=== PATIENT | female | born 1990 | race Caucasian/White ===

== ENCOUNTER 2016-10-03 10:00 | Observation (INO) | payer BC ==
[2016-09-26 14:31] VITALS: BMI 25.0
--- NOTE | 2016-09-26 14:58 | PAT Medication Instructions ---
Service Date September 26, 2016. Current Home Medication List Acetaminophen Tab (Tylenol), 325-650 MG PO PRN Bupropion (Wellbutrin), 100 MG PO TID Levonorgestrel-Ethinyl Estradi (Seasonique), 1 TAB PO HS Lorazepam (Ativan), 0.5 MG PO TID PRN for PRN Mirtazapine Soltab (Remeron Soltab), 30 MG PO HS Multivitamin (Multivitamin), 1 TAB PO QAM Omeprazole (Prilosec), 40 MG PO QAM Polyethylene Glycol 3350 (Miralax), 17 GM PO PRN Sumatriptan Succinate (Imitrex), 100 MG PO PRN [Nystatin Powder], 1 DOSE TOP PRN Medication Instructions For Your Scheduled Surgery - Check with surgeon for instructions: Levonorgestrel-Ethinyl Estradi (Seasonique), 1 TAB PO HS - Hold the following medications 24 hours prior to surgery: [Nystatin Powder], 1 DOSE TOP PRN - Hold the following medications the morning of surgery: Polyethylene Glycol 3350 (Miralax), 17 GM PO PRN Multivitamin (Multivitamin), 1 TAB PO QAM - Take the following medications the morning of surgery with a sip of water: Sumatriptan Succinate (Imitrex), 100 MG PO PRN (if needed) Omeprazole (Prilosec), 40 MG PO QAM Lorazepam (Ativan), 0.5 MG PO TID PRN for PRN (if needed) Bupropion (Wellbutrin), 100 MG PO TID Acetaminophen Tab (Tylenol), 325-650 MG PO PRN (if needed) - Take the following medications as scheduled the night before surgery: Sumatriptan Succinate (Imitrex), 100 MG PO PRN Polyethylene Glycol 3350 (Miralax), 17 GM PO PRN Mirtazapine Soltab (Remeron Soltab), 30 MG PO HS Lorazepam (Ativan), 0.5 MG PO TID PRN for PRN Bupropion (Wellbutrin), 100 MG PO TID Acetaminophen Tab (Tylenol), 325-650 MG PO PRN If you have any questions please call us at [phone] or [phone] or [phone]
[2016-09-26 15:39] LABS: HEMATOCRIT 37.7 % (37-47); MEAN CELL VOLUME 90.8 fL (80-100); MEAN CORPUSCULAR HEMOGLOBIN 30.4 pg (25-34); MEAN CORPUSCULAR HGB CONC 33.4 g/dl (32-36); MEAN PLATELET VOLUME 10.2 fL (7.4-10.4); PLATELET COUNT 272 K/uL (130-400); RED BLOOD COUNT 4.15 M/uL (4.2-5.4); WHITE BLOOD COUNT 5.35 K/uL (4.8-10.8)
[2016-09-26 15:51] LABS: PROTHROMBIN TIME (PATIENT) 10.7 SECONDS (9.0-12.0)
[2016-09-26 16:03] LABS: BASO % 1.3 %; BASO ABS # 0.07 K/uL (0-0.2); COMPLETE YES; EOS % 5.4 %; IG% 0.2 %; LYMPH % 53.8 %; LYMPH ABS # 2.88 K/uL (1.2-3.4); MONO % 5.6 %; NEUT % 33.7 %
[2016-09-26 16:25] LABS: BUN/CREATININE RATIO 13.6 (10-20); CALCIUM 8.7 mg/dl (8.5-10.1); CREATININE 1.1 mg/dl (0.60-1.20); POTASSIUM 3.7 mmol/L (3.5-5.1)
[~2016-10-03] VITALS: Ht 157.5 cm; Wt 61.7 kg
[2016-10-03] VITALS (7 sets, daily range): BP systolic 95–128; BP diastolic 56–87; PULSE 55–79; TEMP 36.4–37; O2SAT 95–100; Ht 157.5 cm; Wt 61.7 kg
[~2016-10-03 10:00] MED LIST: ACET325T96 PO; ATROPINE SULFATE 0.1 MG/ML 5ML SYR IV PRN; BUPR-83 PO; CEFAZOLIN 2000 MG/60 ML D5W IV SCH; ENOXAPARIN 30 MG/0.3 ML SYR SQ SCH; EpHEDrine SULFATE INJ 50 MG/ML AMP IV PRN; FENTANYL CITRATE INJ 50 MCG/1 ML 2 ML VIAL IV PRN; HYDROmorphone INJ 1 MG/ML SYR IV PRN; LACTATED RINGER'S 1000ML 1,000 ML IV SCH; LEVOTAB6 PO; LORA-741 PO; MIRT30TA2 PO; MULT-506 PO; NYSTATIN POWDER TOP; OMEP40CA41 PO; ONDANSETRON INJ 2 MG/ML 2 ML VIAL IV PRN; POLY335019 PO; SUMA100T16 PO
--- NOTE | 2016-10-03 11:00 | History & Physical Bridge Note ---
H&P Re-Evaluation Bridge Note: I have examined the patient, reviewed the History & Physical and in the interval since the performance of the History & Physical I have noted the following changes of clinical significance: No changes noted
[2016-10-03] MEDS ORDERED: HYDROmorphone INJ 2 MG/ML SYR/VIAL ONE ×2 (11:16→14:22)
[2016-10-03] MEDS ORDERED: LIDOCAINE HCL 2% 2 ML VIAL (20MG/ML) ONE (11:16)
[2016-10-03] MEDS ORDERED: FENTANYL CITRATE INJ 50 MCG/1 ML 2 ML VIAL ONE ×2 (11:16→14:22)
[2016-10-03] MEDS ORDERED: MIDAZOLAM HCL 1 MG/ML 2ML VIAL ONE (11:16)
[2016-10-03] MEDS ORDERED: PROPOFOL IV EMULSION 10 MG/ML 20 ML VIAL IV ONE (11:16)
[2016-10-03] MEDS ORDERED: ONDANSETRON INJ 2 MG/ML 2 ML VIAL ONE ×2 (11:16→11:49)
[2016-10-03] MEDS ORDERED: DEXAMETHASONE SOD INJ 4 MG/ML VIAL ONE (11:16)
[2016-10-03] MEDS ORDERED: GLYCOPYRROLATE INJ 0.2 MG/ML VIAL ONE (11:16)
[2016-10-03] MEDS ORDERED: ROCURONIUM BROMIDE 10 MG/ML 5 ML VIAL ONE (11:16)
[2016-10-03] MEDS ORDERED: NEOSTIGMINE METHYLSULFATE 5 MG/5 ML SYR ONE (11:16)
[2016-10-03] MEDS ORDERED: BUPIVACAINE 0.5 % 5 MG/1 ML MPF 30ML VIAL ONE (11:22)
[2016-10-03] MEDS ORDERED: LIDOCAINE/EPINEPHRINE 1% 20 ML VIAL ONE (11:22)
--- NOTE | 2016-10-03 13:59 | [facility] Post Operative Brief Note ---
Immediate Operative Summary Operative Date October 03, 2016. Pre-Operative Diagnosis Abdominal Pannus Post-Operative Diagnosis same as preop Procedure(s) Performed Panniculectomy Surgeon Dr. Melisa Man Tumbler Machine Operator Surgeon(s) Aline Toledo PA-C Estimated Blood Loss 20 Findings excess skin lower abdomen Specimens Permanent Specimens A: Excessive abdominal skin= 860 grams Drains JOHNATHAN x2 Anesthesia general Complication(s) None Disposition Recovery Room / PACU
[2016-10-03] MEDS ORDERED: ONDANSETRON INJ 2 MG/ML 2 ML VIAL IV PRN (14:15)
[2016-10-03] MEDS ORDERED: OXAZEPAM 10MG CAP PO PRN (14:15)
[2016-10-03] MEDS ORDERED: SUMATRIPTAN SUCC TAB 100 MG TAB PO PRN (14:15)
[2016-10-03] MEDS ORDERED: OXYCODONE/ACETAMINOPHEN 5-325 TAB PO PRN (14:15)
[2016-10-03] MEDS ORDERED: PROMETHAZINE HCL INJ 12.5 MG in SODIUM CHLORIDE 0.9% 50ML 50 ML IV PRN ×2 (14:15→14:30)
[2016-10-03] MEDS ORDERED: POLYETHYLENE (MIRALAX) 17 GM PACK PO PRN (14:15)
[2016-10-03] MEDS ORDERED: LORAZEPAM 0.5 MG TAB PO PRN (14:15)
[2016-10-03] MEDS ORDERED: ACETAMINOPHEN 325 MG TAB PO PRN (14:15)
[2016-10-03] MEDS ORDERED: MoRPHine SULFATE 2 MG/ML CARP IV PRN (14:15)
[2016-10-03] MEDS ORDERED: DiphenhydrAMINE HCL 50 MG/ML VIAL IV PRN (14:15)
[2016-10-03] MEDS ORDERED: IV FLUIDS COMPLETED PRN (14:30)
--- NOTE | 2016-10-03 14:48 | Anesthesiology Progress Note ---
Anesthesia Post Op Note Date & Time October 03, 2016 at 14:48 Vital Signs Pain Intensity: 3 Vital Signs Past 12 Hours Date Time Temp Pulse Resp B/P Pulse Ox O2 Delivery O2 Flow Rate FiO2 10/03/16 14:45 36.5 10/03/16 14:41 66 16 10/03/16 14:41 64 16 150/91 100 10/03/16 14:36 64 16 150/88 100 10/03/16 14:36 65 16 10/03/16 14:31 70 10/03/16 14:31 69 14 128/89 100 10/03/16 14:26 68 10/03/16 14:26 69 16 126/90 100 10/03/16 14:21 71 10/03/16 14:21 71 10 142/96 100 10/03/16 14:16 68 10/03/16 14:16 68 16 143/93 100 10/03/16 14:14 135/86 10/03/16 14:06 36.4 73 16 140/89 100 Mask 10 10/03/16 10:17 36.9 75 16 110/75 99 Room Air Notes Mental Status: alert / awake / arousable, participated in evaluation Pt Amnestic to Procedure: Yes Nausea / Vomiting: improving with treatment Pain: adequately controlled Airway Patency, RR, SpO2: stable & adequate BP & HR: stable & adequate Hydration State: stable & adequate Anesthetic Complications: no major complications apparent
[2016-10-03] MEDS ORDERED: NYSTATIN POWDER 15GM BTL EXT PRN (15:30)
--- NOTE | 2016-10-03 16:17 | OPERATIVE REPORT ---
DATE OF OPERATION: 10/03/2016 PREOPERATIVE DIAGNOSIS: Overhanging abdominal panus. POSTOPERATIVE DIAGNOSIS: Same. PROCEDURE: Panniculectomy. SURGEON: Dr. Melisa Man. SURGICAL SCRUB TECHNICIAN: Aline Toledo PA-C. ANESTHESIA: General. COMPLICATIONS: None. INDICATION FOR THE PROCEDURE: The patient is a 26-year-old female who presented to my office after a gastric sleeve procedure and weight loss of 120 pounds. Weight has been stable for greater than 18 months but she experienced excess skin of the lower abdomen hanging on her pubic area resulting in chronic open sores and rashes which will even blister. She has failed conservative management. After discussion, she desired to undergo panniculectomy. BRIEF DESCRIPTION OF THE PROCEDURE: Risks, benefits, and alternatives of the procedure were explained to the patient who agreed and signed consent. She was identified and marked in the preoperative holding area. She was brought to the operating room where she was positioned supine and placed under general anesthesia without incident. A Montgomery catheter was placed. Surgical site was prepped and draped sterilely. A time-out procedure was performed. I reassessed my markings which included a lower horizontal abdominal incision with mid portion 6.5 cm above the lower commissure. Incision was marked bilaterally to the anterior superior iliac spine. I began by injecting 1% lidocaine with epinephrine along the planned incision. The lower abdominal incision was made using a 15 blade scalpel to incise the epidermis and superficial dermis followed by electrocautery to incise the deep dermis, subcutaneous fat, scarp's fascia down to the abdominal wall. Electrocautery was used to elevate the anterior abdominal skin flap ligating the perforating vessels with electrocautery. Dissection was carried up to the level of the umbilicus in the midline. At this point, a 15 blade scalpel was used to circumscribe the umbilicus. A vertical incision was then made from the incision to the umbilicus and divided in the midline using electrocautery. The umbilicus was then dissected out using electrocautery down to abdominal wall. The umbilical stalk appeared viable throughout the procedure. In order to facilitate inset of the umbilicus dissection was carried superiorly in the midline for about 8 cm superior to the umbilicus. At this point, the bed was flexed and the mid portion of the superior flap was inset above the mons pubis using 2-0 Vicryl suture. Skin flaps were marked for excision. A 15 blade scalpel was used to make these incisions and the incision was deepened through the dermis, subcutaneous fat, Ariadna's fascia using electrocautery. A 15 Lao Rudyd drain was placed in the wound bed 2 separate stab incisions in the mons pubis. The drains were sutured in place using 3-0 nylon suture. The neoumbilicus was marked. Due to the depth of the bowl of the umbilicus the umbilical stalk was shortened to facilitate closure. Wound closure was begun lateral to medial direction using 2-0 Vicryl Ariadna's fascia sutures, 2-0 Vicryl deep dermal sutures, 2-0 PDO running superficial Quill suture, 3-0 Monocryl running subcuticular suture. A small dog ear was present on the left side which was excised using a curved iris scissor. The umbilicus was brought out through an inverted triangle incision in the midline where it had been previously marked, sutured in place using 4-0 chromic half buried horizontal mattress sutures. The umbilicus was dressed using Xeroform and incision was dressed using Dermabond Prineo followed by dry dressings and an abdominal binder. Prior to closure, a total of 20 mL 0.25% Marcaine plain were injected in the fascia as well as along the incisions. The procedure was tolerated well. The patient was awakened and transferred to recovery room in satisfactory condition. Aline Toledo was present and scrubbed throughout the entire procedure and was instrumental in providing retraction of the pannus and assisting in simultaneous wound closure. I attest to the content of the Intraoperative Record and any orders documented therein. Any exceptio ns are noted below.
[2016-10-03] MEDS: OXYCODONE/ACETAMINOPHEN 5-325 TAB PO PRN (16:18)
[2016-10-03] MEDS: LACTATED RINGER'S 1000ML 1,000 ML IV SCH (16:24)
[2016-10-03] MEDS: MoRPHine SULFATE 2 MG/ML CARP IV PRN (17:30)
[2016-10-03] MEDS: MoRPHine SULFATE 4 MG/ML 1 ML CARP\\VIAL IV PRN ×3 (19:03→23:25)
[2016-10-03] MEDS: CEFAZOLIN IV 2,000 MG in DEXTROSE 5% 50ML 50 ML IV SCH (20:34)
[2016-10-03] MEDS ORDERED: MIRTAZAPINE SOLTAB 15 MG PO SCH (21:00)
[2016-10-04] MEDS: LACTATED RINGER'S 1000ML 1,000 ML IV SCH (02:14)
[2016-10-04] MEDS: OXYCODONE/ACETAMINOPHEN 5-325 TAB PO PRN ×3 (02:17→12:19)
[2016-10-04 03:05] VITALS: BP 94/61; PULSE 79; TEMP 37; O2SAT 95
[2016-10-04] MEDS: MoRPHine SULFATE 4 MG/ML 1 ML CARP\\VIAL IV PRN ×2 (03:15→06:02)
[2016-10-04] MEDS: CEFAZOLIN IV 2,000 MG in DEXTROSE 5% 50ML 50 ML IV SCH (03:15)
[2016-10-04 07:21] LABS: BASO % 0.6 %; BASO ABS # 0.04 K/uL (0-0.2); COMPLETE YES; EOS % 2.7 %; HEMATOCRIT 36.5 % (37-47); IG% 0.2 %; LYMPH % 31.2 %; LYMPH ABS # 2.05 K/uL (1.2-3.4); MEAN CELL VOLUME 91.3 fL (80-100); MEAN CORPUSCULAR HEMOGLOBIN 29.3 pg (25-34); MEAN CORPUSCULAR HGB CONC 32.1 g/dl (32-36); MEAN PLATELET VOLUME 10.4 fL (7.4-10.4); NEUT % 56.3 %; PLATELET COUNT 202 K/uL (130-400); WHITE BLOOD COUNT 6.57 K/uL (4.8-10.8)
[2016-10-04 07:30] VITALS: BP 100/69; PULSE 79; TEMP 37; O2SAT 95
[2016-10-04 07:45] LABS: BUN/CREATININE RATIO 7.7 (10-20); CALCIUM 8.4 mg/dl (8.5-10.1); CREATININE 0.85 mg/dl (0.60-1.20); POTASSIUM 3.9 mmol/L (3.5-5.1)
[2016-10-04 07:58] LABS: INR 1.1 (0.9-1.1); PROTHROMBIN TIME (PATIENT) 11.3 SECONDS (9.0-12.0)
--- NOTE | 2016-10-04 08:11 | Surgery Progress Note ---
Surgery Progress Note Date of Service October 04, 2016. Subjective Post OP Day: 1 + complaints (pain), + feeling well Objective Vital Signs: Date Time Temp Pulse Resp B/P Pulse Ox O2 Delivery O2 Flow Rate FiO2 10/04/16 07:30 37.0 79 19 100/69 95 Room Air 10/04/16 07:15 Room Air 10/04/16 03:05 37.0 79 16 94/61 95 Room Air 10/03/16 23:25 Room Air 10/03/16 22:55 36.8 79 16 95/56 95 Room Air 10/03/16 19:44 100 Room Air 2.0 10/03/16 18:35 37.0 78 16 107/71 95 Room Air 10/03/16 17:35 36.7 71 16 103/68 99 Nasal Cannula 1.0 10/03/16 16:41 36.4 55 16 116/76 100 Nasal Cannula 1.0 10/03/16 15:45 36.5 63 16 128/87 100 Nasal Cannula 2.0 10/03/16 15:45 100 Nasal Cannula 2.0 10/03/16 15:11 62 10/03/16 15:11 61 16 125/76 100 10/03/16 15:06 61 7 10/03/16 15:06 62 7 116/84 100 10/03/16 15:01 64 12 132/82 100 10/03/16 15:01 65 12 10/03/16 14:57 125/81 10/03/16 14:56 61 11 100 10/03/16 14:56 62 11 10/03/16 14:52 134/83 10/03/16 14:51 71 22 10/03/16 14:51 79 22 100 10/03/16 14:47 122/84 10/03/16 14:46 63 6 10/03/16 14:46 64 6 100 10/03/16 14:45 36.5 10/03/16 14:41 66 16 10/03/16 14:41 64 16 150/91 100 10/03/16 14:36 64 16 150/88 100 10/03/16 14:36 65 16 10/03/16 14:31 70 10/03/16 14:31 69 14 128/89 100 10/03/16 14:26 68 10/03/16 14:26 69 16 126/90 100 5/24/17 14:21 71 10/03/16 14:21 71 10 142/96 100 10/03/16 14:16 68 10/03/16 14:16 68 16 143/93 100 10/03/16 14:14 135/86 10/03/16 14:06 36.4 73 16 140/89 100 Mask 10 10/03/16 10:17 36.9 75 16 110/75 99 Room Air Physical Exam: JOHNATHAN drainage (25 cc serosanguineous ) General Appearance: WD/WN, no apparent distress Incision(s): clean, dry, intact, no erythema Laboratory Results: Results Past 24 Hours Test 10/04/16 06:30 Range/Units White Blood Count 6.57 4.8-10.8 K/uL Red Blood Count 4.00 4.2-5.4 M/uL Hemoglobin 11.7 12.0-16.0 g/dL Hematocrit 36.5 37-47 % Mean Corpuscular Volume 91.3 80-100 fL Mean Corpuscular Hemoglobin 29.3 25-34 pg Mean Corpuscular Hemoglobin Concent 32.1 32-36 g/dl Platelet Count 202 130-400 K/uL Mean Platelet Volume 10.4 7.4-10.4 fL Neutrophils (%) (Auto) 56.3 % Lymphocytes (%) (Auto) 31.2 % Monocytes (%) (Auto) 9.0 % Eosinophils (%) (Auto) 2.7 % Basophils (%) (Auto) 0.6 % Neutrophils # (Auto) 3.70 1.4-6.5 K/uL Lymphocytes # (Auto) 2.05 1.2-3.4 K/uL Monocytes # (Auto) 0.59 0.11-0.59 K/uL Eosinophils # (Auto) 0.18 0-0.5 K/uL Basophils # (Auto) 0.04 0-0.2 K/uL RDW Standard Deviation 42.1 36.4-46.3 fL RDW Coefficient of Variation 12.5 11.5-14.5 % Immature Granulocyte % (Auto) 0.2 % Immature Granulocyte # (Auto) 0.01 0.00-0.02 K/uL Prothrombin Time 11.3 9.0-12.0 SECONDS Prothromb Time International Ratio 1.1 0.9-1.1 Activated Partial Thromboplast Time 27.2 21.0-31.0 SECONDS Partial Thromboplastin Ratio 1.0 Sodium Level 141 136-145 mmol/L Potassium Level 3.9 3.5-5.1 mmol/L Chloride Level 105 98-107 mmol/L Carbon Dioxide Level 28 21-32 mmol/L Anion Gap 8.0 3-11 mmol/L Blood Urea Nitrogen 7 7-18 mg/dl Creatinine 0.85 0.60-1.20 mg/dl Est Creatinine Clear Calc Drug Dose 87.4 ml/min Estimated GFR () 110.4 Estimated GFR (Non- 95.2 BUN/Creatinine Ratio 7.7 10-20 Random Glucose 80 70-99 mg/dl Calcium Level 8.4 8.5-10.1 mg/dl Assessment & Plan s/p panniculectomy 1. pt to stay this AM for pain control, home later today 2. f/u in office tomorrow
--- NOTE | 2016-10-04 08:13 | Discharge Instructions ---
Discharge Instructions Date of Service October 04, 2016. Admission Reason for Admission: Abdominal Pannus Discharge Discharge Diagnosis / Problem: abdominal pannus Discharge Goals Goal(s): Decrease discomfort Activity Recommendations Activity Limitations: per Instructions/Follow-up section ACTIVITY RECOMMENDATIONS: __Normal activities _x_No bending, lifting or straining __No driving __Driving allowed when you are off pain medications _x_Walking permitted __You should have help at home for ___ days DRESSINGS: __No dressings required _x_Keep dressings dry/in place until first office visit __Remove dressings ___ and leave dressings off __Apply ice ___ days __Remove dressings and reapply garment __Apply antibiotic ointment (Bacitracin, Neosporin, etc) to wounds 3-4 times/ day for 10 days BATHING: _x_Keep dressings dry _x_Sponge bathing permitted __Showering permitted _x_No swimming, hot tubs or soaking in a tub MEDICATIONS: Resume previous medications unless instructed otherwise by your surgeon. _x_Do not use aspirin, Motrin, Advil or Ibuprofen as these may promote bleeding. Please use Tylenol. _x_Prescription(s) provided: pain medication was provided at your last office visit OTHER INSTRUCTIONS: _x_Record drain output 2-3 times per day SPECIAL CARE INSTRUCTIONS: * It is normal to have a mild fever after surgery. If your temperature is higher than 101.5 degrees F, please call the office at [phone]. * Constipation is a typical side effect of pain medication. An over-the- counter stool softener will help relieve this. * Leaking around surgical drains may occur and should not cause concern. Sometimes these drains become clogged. If this happens, remove the bulb and milk the clot out of the tube, then replace the bulb. * Drainage from wounds after liposuction is normal and should be expected. Garments will become soiled. You should protect furniture and bedding. This drainage should mostly subside within 2-3 days. Leave garments in place unless instructed to remove them. * If you have unusual drainage from a wound or are concerned you have an infection or have any questions or concerns, please call the office at [phone]. FOLLOW UP VISIT: If not already scheduled, please call the office, , when you return home after surgery to schedule an appointment to be seen in __1_ days. . Current Hospital Diet Patient's current hospital diet: Regular Diet Discharge Diet Recommended Diet: Regular Diet Procedures Procedures Performed: Panniculectomy Pending Studies Studies pending at discharge: yes List of pending studies: pathology Medical Emergencies . Who to Call and When: Medical Emergencies: If at any time you feel your situation is an emergency, please call 911 immediately. . Non-Emergent Contact Non-Emergency issues call your: Primary Care Provider, Surgeon . "Provider Documentation" section prepared by Aline Toledo. . VTE Core Measure Inpt VTE Proph given/why not?: SCD's [place] Drug Monitoring Program Search Results: no issues identified
[2016-10-04] MEDS: MoRPHine SULFATE 2 MG/ML CARP IV PRN (08:43)
[2016-10-04] MEDS ORDERED: PANTOprazole SOD 40 MG TAB PO SCH (09:00)
[2016-10-04] MEDS ORDERED: MULTIVITAMIN TAB PO SCH ×2 (09:00)
[2016-10-04 12:28] VITALS: BP 100/69; PULSE 79; TEMP 37; O2SAT 95
--- NOTE | 2016-10-04 12:58 | Discharge Summary ---
Discharge Summary Date of Service October 04, 2016. Admission Date/Reason October 03, 2016 at 14:14 Abdominal Pannus. Discharge Date/Disposition October 04, 2016 Home Diagnosis Principal Diagnosis: abdominal pannus Procedure(s) Performed panniculectomy Medication Reconciliation Continued Medications: Acetaminophen Tab (Tylenol) 325 Mg Tab 325-650 MG PO PRN, TAB Bupropion (Wellbutrin) 100 Mg Tab 100 MG PO TID, TAB Levonorgestrel-Ethinyl Estradi (Seasonique) 1 Tab Tab 1 TAB PO HS for 90 Days, TAB 3 Refills Lorazepam (Ativan) 0.5 Mg Tab 0.5 MG PO TID PRN for PRN, TAB Mirtazapine Soltab (Remeron Soltab) 30 Mg Soltab 30 MG PO HS, TAB Multivitamin (Multivitamin) Tab 1 TAB PO QAM, TAB Omeprazole (Prilosec) 40 Mg Cap 40 MG PO QAM, #60 Polyethylene Glycol 3350 (Miralax) 1 Pow Pow 17 GM PO PRN, #255 GM Sumatriptan Succinate (Imitrex) 100 Mg Tab 100 MG PO PRN, TAB [Nystatin Powder] () 1 DOSE TOP PRN Admission Physical Exam As per Admitting History & Physical. Hospital Course Patient presented to [facility] with history of symptomatic abdominal pannus. She was taken to the OR and underwent panniculectomy. There were no complications and patient was taken to recovery. On POD #1, the patient complained of AM pain that was moderately controlled on Percocet and morphine. She was tolerating a regular diet. Her pain was well controlled in the afternoon. On exam, her vital signs were stable. Her incision was clean, dry, and intact. She was discharged home with instructions to follow-up in the office. Discharge Instructions Please refer to the electronic Patient Visit Report (Discharge Instructions) for additional information.
== END 2016-10-04 13:27 | disposition home or self-care (01) ==
LOC: ENRESERVDT → ENRESERVTM → C.ACU 10:00 → C.MSW 14:14
PROVIDERS: ADMIT Plastic Surgery; ATTEND Plastic Surgery
DX: E65 Localized adiposity (principal); F41.8 Other specified anxiety disorders; Z98.84 Bariatric surgery status; Z79.899 Other long term (current) drug therapy

== ENCOUNTER 2017-01-28 11:28 | Emergency (ER) | payer BC, OTHER ==
[~2017-01-28] VITALS: Ht 157.5 cm; Wt 65.4 kg
[~2017-01-28 11:28] MED LIST changes: -ATROPINE SULFATE 0.1 MG/ML 5ML SYR IV PRN; -CEFAZOLIN 2000 MG/60 ML D5W IV SCH; -ENOXAPARIN 30 MG/0.3 ML SYR SQ SCH; -EpHEDrine SULFATE INJ 50 MG/ML AMP IV PRN; -FENTANYL CITRATE INJ 50 MCG/1 ML 2 ML VIAL IV PRN; -HYDROmorphone INJ 1 MG/ML SYR IV PRN; -LACTATED RINGER'S 1000ML 1,000 ML IV SCH; -ONDANSETRON INJ 2 MG/ML 2 ML VIAL IV PRN
[2017-01-28 11:29] VITALS: Ht 157.5 cm; Wt 65.4 kg
[2017-01-28] MEDS ORDERED: MoRPHine SULFATE 10 MG/ML CARP/VIAL IV STA (11:57)
[2017-01-28] MEDS ORDERED: ONDANSETRON INJ 2 MG/ML 2 ML VIAL IV STA (11:57)
[2017-01-28 12:23] LABS: BASO % 0.8 %; BASO ABS # 0.04 K/uL (0-0.2); COMPLETE YES; EOS % 4.4 %; HEMATOCRIT 36.8 % (37-47); IG% 0.2 %; LYMPH % 43.3 %; LYMPH ABS # 2.17 K/uL (1.2-3.4); MEAN CELL VOLUME 89.1 fL (80-100); MEAN CORPUSCULAR HEMOGLOBIN 30.8 pg (25-34); MEAN CORPUSCULAR HGB CONC 34.5 g/dl (32-36); MEAN PLATELET VOLUME 10.6 fL (7.4-10.4); NEUT % 43.3 %; PLATELET COUNT 244 K/uL (130-400); RED BLOOD COUNT 4.13 M/uL (4.2-5.4); WHITE BLOOD COUNT 5.01 K/uL (4.8-10.8)
[2017-01-28 12:38] LABS: URINE APPEARANCE CLEAR (CLEAR); URINE BILIRUBIN NEG (NEG); URINE COLOR DK YELLOW; URINE EPITHELIAL CELL AUTO >30 /lpf (0-5); URINE NITRITE NEG (NEG); URINE PH 5.5 (4.5-7.5); URINE SPECIFIC GRAVITY 1.025 (1.000-1.030); UROBILINOGEN NEG (NEG); ZZUR CULT IF INDIC CLEAN CATCH YES
[2017-01-28 12:39] LABS: MANUAL MICROSCOPIC REQUIRED? NO; REVIEW REQ? NO
[2017-01-28 12:41] LABS: BLOOD UREA NITROGEN 12 mg/dl (7-18); GLUCOSE 70 mg/dl (70-99)
[2017-01-28 12:42] LABS: ALT/SGPT 26 U/L (12-78); BUN/CREATININE RATIO 13.2 (10-20); CALCIUM 8.8 mg/dl (8.5-10.1); CARBON DIOXIDE 24 mmol/L (21-32); CHLORIDE 107 mmol/L (98-107); POTASSIUM 3.6 mmol/L (3.5-5.1); SODIUM 141 mmol/L (136-145)
[2017-01-28] MEDS ORDERED: MoRPHine SULFATE 4 MG/ML 1 ML CARP\\VIAL IV STA (12:43)
[2017-01-28 12:44] LABS: ALKALINE PHOSPHATASE 73 U/L (45-117); AST/SGOT 22 U/L (15-37)
[2017-01-28] MEDS ORDERED: OPTIRAY 320 IV PRN (13:30)
--- NOTE | 2017-01-28 14:48 | DIAGNOSTIC IMAGING REPORT ---
ABD/PELVIS IV AND ORAL CONT CT DOSE: 346.24 mGy.cm HISTORY: Pain right lower quadrant pain TECHNIQUE: Multiaxial CT images of the abdomen and pelvis were performed following the use of intravenous and oral contrast. A dose lowering technique was utilized adhering to the principles of ALARA. COMPARISON STUDY: 08/02/2015 FINDINGS: Lung bases are clear. Liver spleen and pancreas are unremarkable. There is been a prior gastroplasty. Kidneys enhance uniformly. No evidence for hydronephrosis. Prior cholecystectomy. Nonobstructive bowel pattern. 1.5 cm right ovarian cyst which is not seen ultrasonically. Short segment of the appendix is identified with diameter less than 5 mm. This is within normal limits. Bladder is midline. No free fluid within the pelvic cul-de-sac. IMPRESSION: 1. 1.5 cm right ovarian cyst. 2. This was not seen ultrasonically. 3. Normal appendix. 4. Operative changes consistent with a prior gastroplasty and cholecystectomy. The above report was generated using voice recognition software. It may contain grammatical, syntax or spelling errors. Electronically signed by: Jose Tafoya M.D. 01/28/2017 2:47 PM Dictated Date/Time: 01/28/2017 2:39 PM
[2017-01-28] MEDS ORDERED: KETOROLAC TROMETHAMINE 30 MG/ML VIAL IV STA (15:23)
[2017-01-28] MEDS ORDERED: PROMETHAZINE HCL INJ 25 MG/ML 1 ML VIAL IV STA (15:23)
[2017-01-28 16:10] VITALS: BP 126/81; PULSE 56; TEMP 36.4; O2SAT 96
[2017-01-28] MEDS ORDERED: HYDR-5688 PO (16:27)
[2017-01-28] MEDS ORDERED: ONDA4TAB10 SL (16:27)
--- NOTE | 2017-01-28 16:29 | EMERGENCY ROOM VISIT NOTE ---
History First contact with patient: 11:49 Chief Complaint: ABDOMINAL PAIN Stated Complaint: LOWER ABD PAIN AND BACK PAIN Nursing Triage Summary: RLQ abd pain, nausea and vomiting Hx of cholecystectomy History of Present Illness The patient is a 27 year old female who presents to the Emergency Room with complaints of right lower quadrant pain which started at 9:30 this morning. The patient states she got a sharp pain just to the right side of the belly button 9:30. Then about 15 minutes later she fell like she had to urinate so she went to the bathroom. She had no difficulty with urination but felt then let she had to poop but could not. The patient states that earlier this morning she had loose stools. She states after she tried to move her bowels she became nauseated and vomited. The patient denies any fever, any urinary symptoms of frequency, urgency, dysuria or hematuria. The patient denies any vaginal discharge. The patient had a cholecystectomy in 2018 which was not in this area. She also has a history of gastric sleeve in 2014 and a panniculectomy 5 months ago. She denies any redness or drainage from the incision site. The patient denies . Review of Systems 10 system review was performed and was negative unless stated otherwise history of present illness. Past Medical/Surgical History Medical Problems: (1) Abdominal pannus (2) Anxiety (3) borderline personality traits (4) Depression (5) Drug overdose - suicide (6) FX MID/PRX PHAL, HAND-CL (7) Gastric sleeve Surgical Problems: (1) History of cholecystectomy Family History Cancer Diabetes mellitus Hypertension Social History Smoking Status: Never Smoker Alcohol Use: none Drug Use: none Marital Status: single Housing Status: lives with family Occupation Status: employed Current/Historical Medications Scheduled Bupropion (Wellbutrin), 100 MG PO TID Mirtazapine Soltab (Remeron Soltab), 30 MG PO HS Multivitamin (Multivitamin), 1 TAB PO QAM Omeprazole (Prilosec), 40 MG PO QAM Polyethylene Glycol 3350 (Miralax), 17 GM PO PRN Sumatriptan Succinate (Imitrex), 100 MG PO PRN Scheduled PRN Lorazepam (Ativan), 0.5 MG PO TID PRN for PRN Physical Exam Vital Signs Date Time Temp Pulse Resp B/P (MAP) Pulse Ox O2 Delivery O2 Flow Rate FiO2 9/18/17 15:47 56 16 126/81 96 Room Air 01/28/17 14:07 98 16 108/72 98 Room Air 01/28/17 12:54 93 18 112/70 99 Room Air 01/28/17 11:29 36.4 69 18 117/83 96 Room Air Physical Exam GENERAL: 27-year-old white female appears uncomfortable secondary to abdominal pain. MENTAL Status: Alert and oriented 3. MOUTH: Mucosa is moist NECK: Supple, no lymphadenopathy noted. No carotid bruits noted. LUNGS: Clear auscultation without wheezes rales or rhonchi. CARDIAC: Regular rate and rhythm without murmur. Pulses is full and equal throughout. BACK: No CVA tenderness noted. ABDOMEN: Positive bowel sounds all 4 quadrants. Soft, tenderness palpation in the right lower quadrant otherwise nontender to palpation without organomegaly or masses. Horizontal lower abdominal incision noted without any signs of infection of erythema edema or drainage. Positive rebound. EXTREMITIES: No cyanosis or edema noted. Medical Decision & Procedures ER Provider Diagnostic Interpretation: ABD/PELVIS IV AND ORAL CONT CT DOSE: 346.24 mGy.cm HISTORY: Pain right lower quadrant pain TECHNIQUE: Multiaxial CT images of the abdomen and pelvis were performed following the use of intravenous and oral contrast. A dose lowering technique was utilized adhering to the principles of ALARA. COMPARISON STUDY: 08/02/2015 FINDINGS: Lung bases are clear. Liver spleen and pancreas are unremarkable. There is been a prior gastroplasty. Kidneys enhance uniformly. No evidence for hydronephrosis. Prior cholecystectomy. Nonobstructive bowel pattern. 1.5 cm right ovarian cyst which is not seen ultrasonically. Short segment of the appendix is identified with diameter less than 5 mm. This is within normal limits. Bladder is midline. No free fluid within the pelvic cul-de-sac. IMPRESSION: 1. 1.5 cm right ovarian cyst. 2. This was not seen ultrasonically. 3. Normal appendix. 4. Operative changes consistent with a prior gastroplasty and cholecystectomy. The above report was generated using voice recognition software. It may contain grammatical, syntax or spelling errors. Electronically signed by: Jose Tafoya M.D. 01/28/2017 2:47 PM Dictated Date/Time: 01/28/2017 2:39 PM Laboratory Results 01/28/17 12:10 Red Blood Count 4.13, Mean Corpuscular Volume 89.1, Mean Corpuscular Hemoglobin 30.8, Mean Corpuscular Hemoglobin Concent 34.5, Mean Platelet Volume 10.6, Neutrophils (%) (Auto) 43.3, Lymphocytes (%) (Auto) 43.3, Monocytes (%) (Auto) 8.0, Eosinophils (%) (Auto) 4.4, Basophils (%) (Auto) 0.8, Neutrophils # (Auto) 2.17, Lymphocytes # (Auto) 2.17, Monocytes # (Auto) 0.40, Eosinophils # (Auto) 0.22, Basophils # (Auto) 0.04 01/28/17 12:10 Test 01/28/17 11:45 01/28/17 12:10 Urine Color DK YELLOW Urine Appearance CLEAR (CLEAR) Urine pH 5.5 (4.5-7.5) Urine Specific [place] 1.025 (1.000-1.030) Urine Protein NEG (NEG) Urine Glucose (UA) NEG (NEG) Urine Ketones 1+ (NEG) Urine Occult Blood NEG (NEG) Urine Nitrite NEG (NEG) Urine Bilirubin NEG (NEG) Urine Urobilinogen NEG (NEG) Urine Leukocyte Esterase TRACE (NEG) Urine WBC (Auto) 1-5 /hpf (0-5) Urine RBC (Auto) 0-4 /hpf (0-4) Urine Hyaline Casts (Auto) 1-5 /lpf (0-5) Urine Epithelial Cells (Auto) >30 /lpf (0-5) Urine Bacteria (Auto) 1+ (NEG) White Blood Count 5.01 K/uL (4.8-10.8) Red Blood Count 4.13 M/uL (4.2-5.4) Hemoglobin 12.7 g/dL (12.0-16.0) Hematocrit 36.8 % (37-47) Mean Corpuscular Volume 89.1 fL (80-100) Mean Corpuscular Hemoglobin 30.8 pg (25-34) Mean Corpuscular Hemoglobin Concent 34.5 g/dl (32-36) Platelet Count 244 K/uL (130-400) Mean Platelet Volume 10.6 fL (7.4-10.4) Neutrophils (%) (Auto) 43.3 % Lymphocytes (%) (Auto) 43.3 % Monocytes (%) (Auto) 8.0 % Eosinophils (%) (Auto) 4.4 % Basophils (%) (Auto) 0.8 % Neutrophils # (Auto) 2.17 K/uL (1.4-6.5) Lymphocytes # (Auto) 2.17 K/uL (1.2-3.4) Monocytes # (Auto) 0.40 K/uL (0.11-0.59) Eosinophils # (Auto) 0.22 K/uL (0-0.5) Basophils # (Auto) 0.04 K/uL (0-0.2) RDW Standard Deviation 39.5 fL (36.4-46.3) RDW Coefficient of Variation 12.3 % (11.5-14.5) Immature Granulocyte % (Auto) 0.2 % Immature Granulocyte # (Auto) 0.01 K/uL (0.00-0.02) Anion Gap 10.0 mmol/L (3-11) Est Creatinine Clear Calc Drug Dose 84.1 ml/min Estimated GFR () 102.3 Estimated GFR (Non- 88.2 BUN/Creatinine Ratio 13.2 (10-20) Calcium Level 8.8 mg/dl (8.5-10.1) Total Bilirubin 0.4 mg/dl (0.2-1) Direct Bilirubin < 0.1 mg/dl (0-0.2) Aspartate Amino Transf (AST/SGOT) 22 U/L (15-37) Alanine Aminotransferase (ALT/SGPT) 26 U/L (12-78) Alkaline Phosphatase 73 U/L (45-117) Total Protein 7.6 gm/dl (6.4-8.2) Albumin 3.9 gm/dl (3.4-5.0) Lipase 135 U/L (73-393) Medications Administered Medications (Trade) Dose Ordered Sig/Sergio Route Start Time Stop Time Status Last Admin Dose Admin Ondansetron HCl (Zofran Inj) 4 mg NOW STAT IV 01/28/17 11:57 01/28/17 11:59 DC 01/28/17 12:16 4 MG Morphine Sulfate (MoRPHine SULFATE INJ) 6 mg NOW STAT IV 01/28/17 11:57 01/28/17 11:59 DC 01/28/17 12:16 6 MG Morphine Sulfate (MoRPHine SULFATE INJ) 4 mg NOW STAT IV 01/28/17 12:43 01/28/17 12:44 DC 01/28/17 12:52 4 MG Promethazine HCl (Phenergan Inj) 25 mg NOW STAT IV 01/28/17 15:23 01/28/17 15:24 DC 01/28/17 15:45 25 MG Ketorolac Tromethamine (Toradol Inj) 30 mg NOW STAT IV 01/28/17 15:23 01/28/17 15:24 DC 01/28/17 15:46 30 MG ED Course The patient was evaluated. The patient's EMR medication list were reviewed. IV access was obtained. The patient was given 1 L normal saline wide-open. CBC differential, renal profile, LFTs and lipase levels were ordered. Urine dip revealed ketones but no other signs of infection. Urine will be sent for microanalysis and culture needed. Urine dip was negative for . The patient was given Zofran 4 mg IV push. She was also given morphine 6 mg IV for pain. The patient's labs are reviewed and were unremarkable. The patient's white count was normal. Urinalysis revealed some ketones and some bacteria but there were signs of contamination. This will be sent for culture. The patient was reevaluated and stated the pain was returning therefore she was given additional 4 mg of morphine IV. CT of the abdomen and pelvis with IV and oral contrast was ordered and interpreted by the radiologist as above with a 1.5 cm right ovarian cyst otherwise was unremarkable. I do not feel that this is causing her pain. The patient was reevaluated and was still in pain and was nauseated. The patient was given Phenergan 25 mg IV and Toradol 30 mg IV. The patient was once again reevaluated and was feeling much better. The patient was discharged home in stable condition. Medical Decision Differential diagnoses include reflux, gastritis, gastroenteritis, pancreatitis, ,, appendicitis, mesenteric ischemia, pyelonephritis, urinary tract infection, renal colic, diverticulitis, shingles, bowel obstruction, intussusception, hernia, ovarian torsion, ruptured ovarian cyst, ectopic , . Medication Reconcilliation Current Medication List: was personally reviewed by me Blood Pressure Screening Patient's blood pressure: Normal blood pressure Impression Primary Impression: Right lower quadrant abdominal pain Additional Impression: Ovarian cyst, right Departure Information Dispostion Home / Self-Care Condition GOOD Prescriptions Hydrocodone/Acetaminophen 5MG/325MG ([place] 5MG/325MG) Tab 1-2 TABLET PO Q6 Y for Pain, #14 TAB For Initial Treatment Prov: Meena Tafoya PA-C 01/28/17 Ondasetron Odt (ZOFRAN ODT) 4 Mg Tab 4 MG SL Q6H for Nausea, #10 TAB Prov: Meena Tafoya PA-C 01/28/17 Referrals Jorge Luis Schreiber M.D. (PCP) Forms HOME CARE DOCUMENTATION FORM, IMPORTANT VISIT INFORMATION Patient Instructions Abdominal Pain - [facility], ED Cyst Ovarian, [facility] Additional Instructions Push fluids, rest. Take Zofran as needed for nausea. Take [place] as needed for pain. Do not drive while taking the [place]. If your symptoms persist, follow- up with [facility]. If symptoms worsen, return to ER. Problem Qualifiers
--- NOTE | 2017-02-01 14:42 | Pharmacy Progress Note ---
ED Pharmacist Progress Note Date of Service: Feb 01, 2017. Received call from [facility] - Zofran ODT not covered. Also, Zofran tab not covered either. Provided verbal prescription to pharmacist at [facility] for Phenergan 25 mg po q6h prn nausea, #4, 0 refill. Case discussed with Dr. Torres, who is the prescribing provider.
== END 2017-01-28 16:10 | disposition home or self-care (01) ==
LOC: C.EDB 11:29
DX: R10.31 Right lower quadrant pain (principal); M54.9 Dorsalgia, unspecified; N83.201 Unspecified ovarian cyst, right side; Z98.84 Bariatric surgery status

== ENCOUNTER 2017-02-14 14:29 | Emergency (ER) | payer OTHER ==
[~2017-02-14] VITALS: Ht 157.5 cm; Wt 65.9 kg
[~2017-02-14 14:29] MED LIST changes: -ACET325T96 PO; +HYDR-5688 PO; -LEVOTAB6 PO; -NYSTATIN POWDER TOP; +ONDA4TAB10 SL
[2017-02-14 14:32] VITALS: TEMP 36.8; Ht 157.5 cm; Wt 65.9 kg
[2017-02-14] MEDS ORDERED: SODIUM CHLORIDE 0.9% 1000ML 1,000 ML IV STA (15:04)
[2017-02-14 15:13] LABS: BASO % 1.1 %; BASO ABS # 0.06 K/uL (0-0.2); COMPLETE YES; HEMATOCRIT 40.6 % (37-47); LYMPH ABS # 2.55 K/uL (1.2-3.4); MEAN CELL VOLUME 90.2 fL (80-100); MEAN CORPUSCULAR HEMOGLOBIN 30.4 pg (25-34); MEAN CORPUSCULAR HGB CONC 33.7 g/dl (32-36); MEAN PLATELET VOLUME 10.8 fL (7.4-10.4); MONO % 9.7 %; NEUT % 36.2 %; PLATELET COUNT 261 K/uL (130-400); WHITE BLOOD COUNT 5.54 K/uL (4.8-10.8)
[2017-02-14] MEDS ORDERED: ONDANSETRON 8 MG/54 ML D5W IV STA (15:17)
[2017-02-14] MEDS ORDERED: MoRPHine SULFATE 4 MG/ML 1 ML CARP\\VIAL IV STA (15:17)
[2017-02-14] MEDS ORDERED: ONDA4TAB46 SL (15:18)
[2017-02-14 15:33] LABS: ALT/SGPT 28 U/L (12-78); AST/SGOT 26 U/L (15-37); BLOOD UREA NITROGEN 10 mg/dl (7-18); BUN/CREATININE RATIO 12.8 (10-20); CALCIUM 9.3 mg/dl (8.5-10.1); CARBON DIOXIDE 28 mmol/L (21-32); CHLORIDE 106 mmol/L (98-107); CREATININE 0.79 mg/dl (0.60-1.20); GLUCOSE 94 mg/dl (70-99); POTASSIUM 3.8 mmol/L (3.5-5.1); SODIUM 141 mmol/L (136-145)
[2017-02-14 15:36] LABS: ALKALINE PHOSPHATASE 75 U/L (45-117)
[2017-02-14 15:53] LABS: URINE APPEARANCE CLOUDY (CLEAR); URINE BILIRUBIN NEG (NEG); URINE COLOR DK YELLOW; URINE EPITHELIAL CELL AUTO >30 /lpf (0-5); URINE NITRITE NEG (NEG); URINE PH 5.5 (4.5-7.5); URINE SPECIFIC GRAVITY 1.034 (1.000-1.030); UROBILINOGEN NEG (NEG)
[2017-02-14 15:57] LABS: MANUAL MICROSCOPIC REQUIRED? NO; REVIEW REQ? YES
[2017-02-14 16:06] LABS: URINE MUCUS PRESENT (NONE PRSENT)
[2017-02-14 16:08] LABS: ZZUR CULT IF INDIC CLEAN CATCH YES
--- NOTE | 2017-02-14 16:11 | EMERGENCY ROOM VISIT NOTE ---
History Report prepared by Shyanne: Naif Rodriguez Under the Supervision of: Dr. Thierry Torres M.D. First contact with patient: 15:04 Chief Complaint: ABDOMINAL PAIN Stated Complaint: STOMACH PAIN/BLOATING-SENT BY 'S OFFICE Nursing Triage Summary: Patient states "Dr. Wilkins from [facility] sent me here because my stomach has been hurting for 2 weeks but today is so severe. I've also been nauseated." History of Present Illness The patient is a 27 year old female who presents to the Emergency Room with complaints of severe, worsening, right lower quadrant abdominal pain beginning two weeks ago. She currently rates her discomfort a 9/10 in severity. The patient states her pain radiates up her right side and causes intermittent, right-sided chest pain. She reports she saw [facility] a week ago, and she was told she has a small ovarian cyst, but it is not causing her discomfort. The patient notes she saw her PCP yesterday and had an x-ray performed. She states she received her results, but she could not understand them. The patient reports she called them back, was told it could be a small bowel blockage, and go to the ED. She notes she has not moved her bowels in three weeks, and her stomach felt rock hard yesterday. The patient states she has tried using two doses of Miralax, two colonoscopy preps, and nothing is helping. She reports she had a gastric sleeve in place two years ago. The patient notes that is the only time she followed up with a panel wirer after her cholecystectomy 8 years ago. She states she cannot eat without developing nausea and then vomiting. The patient reports she has developed the chills, stuffy nose, a scratchy throat, and stomach numbness since the onset of her symptoms. She denies a history of any other abdominal surgeries. Pt denies LOC, headache, fevers, diaphoresis, visual changes, neck pain, breathing difficulties, back pain, melena, hematochezia, urinary symptoms, weakness, lymphadenopathy, rash, or other complaints. Position: abdomen (RLQ) Symptom Intensity: 9/10 Timing: worsening Associated Symptoms: + chills, + chest pain, + nausea, + vomiting Note: Associated symptoms: stuffy nose, a scratchy throat, and stomach numbness since the onset of her symptoms. Review of Systems See HPI for pertinent positives and negatives. A total of ten systems were reviewed and were otherwise negative. Past Medical & Surgical Medical Problems: (1) Abdominal pannus (2) Anxiety (3) borderline personality traits (4) Depression (5) Drug overdose - suicide (6) FX MID/PRX PHAL, HAND-CL (7) Gastric sleeve Surgical Problems: (1) History of cholecystectomy Family History Cancer Diabetes mellitus Hypertension Social History Smoking Status: Never Smoker Alcohol Use: none Drug Use: none Marital Status: single Housing Status: lives with family Occupation Status: employed Current/Historical Medications Scheduled Bupropion (Wellbutrin), 100 MG PO TID Mirtazapine Soltab (Remeron Soltab), 30 MG PO HS Multivitamin (Multivitamin), 1 TAB PO QAM Omeprazole (Prilosec), 40 MG PO QAM Polyethylene Glycol 3350 (Miralax), 17 GM PO PRN Sumatriptan Succinate (Imitrex), 100 MG PO PRN Scheduled PRN Dicyclomine Hcl (Bentyl), 20 MG PO QID PRN for Pain Lorazepam (Ativan), 0.5 MG PO TID PRN for PRN Ondansetron Hcl (Zofran), 4 MG SL Q6H PRN for Nausea Allergies Coded Allergies: Clarithromycin (Unverified Adverse Reaction, Unknown, n/v, 02/14/17) Physical Exam Vital Signs Date Time Temp Pulse Resp B/P (MAP) Pulse Ox O2 Delivery O2 Flow Rate FiO2 02/14/17 20:09 75 20 95/45 98 02/14/17 18:36 102/59 02/14/17 16:19 83 21 02/14/17 16:14 100 21 02/14/17 16:09 94 22 02/14/17 16:04 85 26 02/14/17 16:00 87 02/14/17 15:59 90 18 02/14/17 14:56 86 18 107/71 100 Room Air 02/14/17 14:50 107/71 02/14/17 14:32 36.8 86 18 114/69 99 Room Air Physical Exam GENERAL: Awake, alert, uncomfortable-appearing, in no distress HENT: Normocephalic, atraumatic. Oropharynx unremarkable. EYES: Normal conjunctiva. Sclera non-icteric. NECK: Supple. No nuchal rigidity. FROM. No JVD. RESPIRATORY: Clear to auscultation. CARDIAC: Regular rate, normal rhythm. Extremities warm and well perfused. Pulses equal. ABDOMEN: Soft, non-distended. Suprapubic, right lower, and right upper quadrant tenderness to palpation. No rebound or guarding. No masses. RECTAL: Deferred. MUSCULOSKELETAL: Chest examination reveals no tenderness. The back is symmetrical on inspection without obvious abnormality. There is no CVA tenderness to palpation. No joint edema. LOWER EXTREMITIES: Calves are equal size bilaterally and non-tender. No edema. No discoloration. NEURO: Normal sensorium. No sensory or motor deficits noted. SKIN: No rash or jaundice noted. Medical Decision & Procedures ER Provider Diagnostic Interpretation: Radiology results as stated below per my review and radiologist interpretation: CT from 02/13/2017 CT ABDOMEN COMPLETE, INCLUDING DECUBITUS AND/OR ERECT VIEWS IMPRESSION: No evidence of high-grade bowel obstruction. However, mild small bowel ileus or partial obstruction is not excluded. ABDOMEN AND PELVIS CT WITH IV AND ORAL CONTRAST CT DOSE: 334.79 mGy.cm HISTORY: right abd pain, no BM in 3 weeks, output xrays ?obs. TECHNIQUE: Multiaxial CT images of the abdomen and pelvis were performed following the use of intravenous and oral contrast. A dose lowering technique was utilized adhering to the principles of ALARA. COMPARISON STUDY: Abdomen and pelvis CT 01/28/2017. FINDINGS: Postoperative changes within the stomach. The liver, spleen, pancreas, and adrenal glands are unremarkable. Cholecystectomy. No retroperitoneal lymphadenopathy. The appendix is normal in size measuring up to 5 mm in diameter. The bladder, uterus, and left ovary are unremarkable. There is a 1.7 cm right ovarian cyst. This is similar to the prior study. No bowel wall thickening or obstruction. Moderate amount of liquid stool seen within the distal colon rectum. No fractures in the visualized osseous structures. IMPRESSION: 1. No bowel wall thickening or obstruction. 2. Normal appendix. 3. Moderate amount of liquid stool seen within the sigmoid colon and rectum. 4. No significant change in 1.7 cm right ovarian cyst. 5. Normal appendix. Electronically signed by: Leif Candelaria M.D. 02/14/2017 5:54 PM Dictated Date/Time: 02/14/2017 5:47 PM Laboratory Results 02/14/17 14:45 Red Blood Count 4.50, Mean Corpuscular Volume 90.2, Mean Corpuscular Hemoglobin 30.4, Mean Corpuscular Hemoglobin Concent 33.7, Mean Platelet Volume 10.8, Neutrophils (%) (Auto) 36.2, Lymphocytes (%) (Auto) 46.0, Monocytes (%) (Auto) 9.7, Eosinophils (%) (Auto) 7.0, Basophils (%) (Auto) 1.1, Neutrophils # (Auto) 2.00, Lymphocytes # (Auto) 2.55, Monocytes # (Auto) 0.54, Eosinophils # (Auto) 0.39, Basophils # (Auto) 0.06 02/14/17 14:45 Test 02/14/17 14:45 02/14/17 15:30 White Blood Count 5.54 K/uL (4.8-10.8) Red Blood Count 4.50 M/uL (4.2-5.4) Hemoglobin 13.7 g/dL (12.0-16.0) Hematocrit 40.6 % (37-47) Mean Corpuscular Volume 90.2 fL (80-100) Mean Corpuscular Hemoglobin 30.4 pg (25-34) Mean Corpuscular Hemoglobin Concent 33.7 g/dl (32-36) Platelet Count 261 K/uL (130-400) Mean Platelet Volume 10.8 fL (7.4-10.4) Neutrophils (%) (Auto) 36.2 % Lymphocytes (%) (Auto) 46.0 % Monocytes (%) (Auto) 9.7 % Eosinophils (%) (Auto) 7.0 % Basophils (%) (Auto) 1.1 % Neutrophils # (Auto) 2.00 K/uL (1.4-6.5) Lymphocytes # (Auto) 2.55 K/uL (1.2-3.4) Monocytes # (Auto) 0.54 K/uL (0.11-0.59) Eosinophils # (Auto) 0.39 K/uL (0-0.5) Basophils # (Auto) 0.06 K/uL (0-0.2) RDW Standard Deviation 41.9 fL (36.4-46.3) RDW Coefficient of Variation 12.8 % (11.5-14.5) Immature Granulocyte % (Auto) 0.0 % Immature Granulocyte # (Auto) 0.00 K/uL (0.00-0.02) Anion Gap 7.0 mmol/L (3-11) Est Creatinine Clear Calc Drug Dose 96.1 ml/min Estimated GFR () 119.7 Estimated GFR (Non- 103.3 BUN/Creatinine Ratio 12.8 (10-20) Calcium Level 9.3 mg/dl (8.5-10.1) Total Bilirubin 0.2 mg/dl (0.2-1) Direct Bilirubin < 0.1 mg/dl (0-0.2) Aspartate Amino Transf (AST/SGOT) 26 U/L (15-37) Alanine Aminotransferase (ALT/SGPT) 28 U/L (12-78) Alkaline Phosphatase 75 U/L (45-117) Total Protein 8.1 gm/dl (6.4-8.2) Albumin 4.2 gm/dl (3.4-5.0) Lipase 188 U/L (73-393) Urine Color DK YELLOW Urine Appearance CLOUDY (CLEAR) Urine pH 5.5 (4.5-7.5) Urine Specific Allison 1.034 (1.000-1.030) Urine Protein NEG (NEG) Urine Glucose (UA) NEG (NEG) Urine Ketones TRACE (NEG) Urine Occult Blood NEG (NEG) Urine Nitrite NEG (NEG) Urine Bilirubin NEG (NEG) Urine Urobilinogen NEG (NEG) Urine Leukocyte Esterase NEG (NEG) Urine WBC (Auto) 5-10 /hpf (0-5) Urine RBC (Auto) 0-4 /hpf (0-4) Urine Hyaline Casts (Auto) 1-5 /lpf (0-5) Urine Epithelial Cells (Auto) >30 /lpf (0-5) Urine Bacteria (Auto) 1+ (NEG) Urine Crystals CALCIUM OXALATE (NONE Urine Mucus PRESENT (NONE PRSENT) Urine Test NEG (NEG) Laboratory results reviewed by me Medications Administered Medications (Trade) Dose Ordered Sig/Sergio Route Start Time Stop Time Status Last Admin Dose Admin Sodium Chloride 1,000 ml @ 999 mls/hr Q1H1M STAT IV 02/14/17 15:04 02/14/17 16:04 DC 02/14/17 15:34 999 MLS/HR Ondansetron HCl (Zofran 8mg Iv) 8 mg NOW STAT IV 02/14/17 15:17 02/14/17 15:20 DC 02/14/17 15:34 8 MG Morphine Sulfate (MoRPHine SULFATE INJ) 4 mg NOW STAT IV 02/14/17 15:17 02/14/17 15:20 DC 02/14/17 15:34 4 MG Ketorolac Tromethamine (Toradol Inj) 10 mg NOW STAT IV 02/14/17 16:35 02/14/17 16:36 DC 02/14/17 16:45 10 MG Fentanyl Citrate (Fentanyl Inj) 50 mcg NOW STAT IV 02/14/17 19:01 02/14/17 19:02 DC 02/14/17 19:08 50 MCG Dicyclomine HCl (Dicyclomine HCl 10MG Home Pack) 1 ea UD ONCE PO 02/14/17 19:30 02/14/17 19:31 DC 02/14/17 19:55 1 EA ED Course 1504: Ordered Sodium Chloride 1000 ml @ 999 mls/hr IV 1514: The patient was evaluated in room B12B. A complete history and physical exam was performed. 1517: Ordered Morphine Sulfate 4mg IV, Ondansetron HCl 8mg IV 1635: Ordered Toradol 10mg IV 1709: I reevaluated the patient, and I discussed her current exam findings. She is feeling better and going to CT. 1899: I reevaluated the patient. She is feeling better. 1900: Ordered Fentanyl 50mcg IV 1929: Ordered Dicyclomine HCl 1ea PO 1930: I reevaluated the patient. Discussed results and discharge instructions: she verbalized understanding and agreement. The patient is ready for discharge. Medical Decision Triage Nursing notes reviewed. The patient's presentation and history were concerning for abdominal pain. Patient also states that her x-ray from the outpatient clinic was concerning for possible obstruction. The patient states she has been seen by [facility] EXP[facility]ER for this problem and had an examination and ultrasound which were unremarkable. Prior records from previous Emergency Room visits reviewed. Etiologies such as obstruction, constipation, gastric sleeve complication, appendicitis, diverticulitis, inflammatory bowel disease, renal colic, PUD, biliary pathology, pancreatitis, mesenteric ischemia, aortic pathology, infections, genitourinary, UTI, perforated viscus, as well as others were entertained. The patient was evaluated. She is tender in the right side of her abdomen. She was hydrated. She was given Zofran. She received 4 mg of morphine. The patient had laboratory testing performed. Her CBC, chemistry panel, LFTs, lipase and urinalysis were unremarkable. The patient is not . She was prepped for CT imaging to further elucidate this abdominal pain. The patient did not have any evidence of bowel obstruction. Her outpatient x- rays raise concerns for possible ileus. This does not appear to be the case on CT imaging. The patient has moderate medical stool throughout. Exact cause of her abdominal pain is not obvious at this time. She's had issues with abdominal pain the past. I discussed referral back to primary physician and discuss his about referral to gastroenterology. The patient feels comfortable with this. She was given a Bentyl home pack and a prescription sent to her pharmacy. She worsens in any way she will be back. I gave my usual and customary discussion regarding this issue. By the evaluation outlined above other emergent etiologies such as those listed in the differential, as well as others, were deemed relatively unlikely. The patient was educated about the findings as listed above. All questions were answered and the patient was pleased with the treatment. Return instructions were outlined and the patient was discharged in stable condition. The patient was referred to her PCP for follow-up for a recheck of the current condition. [place] Drug Monitoring Program Search Results: patient reviewed within database, see additional documentation Drug Monitoring Findings: The patient has received 14 prescriptions by 6 different doctors. She is cleared. Medication Reconcilliation Current Medication List: was personally reviewed by me Blood Pressure Screening Patient's blood pressure: Normal blood pressure Blood pressure disposition: Did not require urgent referral Impression Primary Impression: Right lower quadrant abdominal pain Additional Impression: Right upper quadrant abdominal pain Scribe Attestation The scribe's documentation has been prepared under my direction and personally reviewed by me in its entirety. I confirm that the note above accurately reflects all work, treatment, procedures, and medical decision making performed by me. Departure Information Dispostion Home / Self-Care Prescriptions Dicyclomine Hcl (BENTYL) 20 Mg Tab 20 MG PO QID Y for Pain, #20 TAB Prov: Thierry Torres MD 02/14/17 Referrals Jorge Luis Schreiber M.D. (PCP) Forms HOME CARE DOCUMENTATION FORM, IMPORTANT VISIT INFORMATION Patient Instructions My [facility] Additional Instructions ABDOMINAL PAIN INSTRUCTIONS: DO NOT drive, drink alcohol, operate machinery, or perform dangerous activities today. You were given medications in the ER that can affect your ability to safely function or operate a vehicle. Bentyl(dicyclomine) 20 mg: Take one tablet 4 times daily as needed for abdominal pain. If 20 mg does not seem to be enough you may increase to 40 mg 4 times daily after one week. If you do not have any results with this medication do not continue past 2 weeks from the start date. Discontinue this medication if you develop any rash, itching, increased abdominal pain, heartburn , increased nausea, constipation, or as needed. Ibuprofen(Motrin, Advil) may be used for fever or pain. Use 600mg every six hours as needed. Take with food. Avoid using more than 2400mg in a 24 hour period. Do not use 2400mg per day for more than three consecutive days without physician direction. Prolonged inappropriate use can lead to stomach upset or ulcers. (AND/OR) Acetaminophen(Tylenol) may be used for fever or pain. Use 1000mg every six hours as needed. Avoid using more than 4000mg in a 24 hour period. Phenergan(promethazine) tablets 25mg: Take one every six hours as needed for nausea. Avoid alcohol, operating machinery or dangerous equipment, working on ladders or roofs, DRIVING, or situations where being under the influence may be dangerous. Rest and drink plenty of fluids as tolerated. Slow sips of water or sports drinks are recommended instead of large amounts all at once. Continue current medications. Once your stomach is settled start with a clear liquid diet (jello, soup broth, etc.) and then advance as tolerated. You should avoid full, heavy meals for about 24 hrs from the time your symptoms resolved. Return to the emergency department in 8-12 hours for reevaluation or sooner if the pain worsens, migrates to the right lower part of your abdomen, vomiting occurs, or you feel it necessary. Return to the ER immediately for worsening or persistent abdominal pain, vomiting, fevers, chest pains, difficulty breathing, black or bloody stools, worsening of your condition, or as needed. Follow up with your primary physician in 2-3 days for a recheck of your current condition. Problem Qualifiers
[2017-02-14] MEDS ORDERED: OPTIRAY 320 IV PRN (16:15)
[2017-02-14] MEDS ORDERED: KETOROLAC TROMETHAMINE 30 MG/ML VIAL IV STA (16:35)
--- NOTE | 2017-02-14 17:55 | DIAGNOSTIC IMAGING REPORT ---
ABDOMEN AND PELVIS CT WITH IV AND ORAL CONTRAST CT DOSE: 334.79 mGy.cm HISTORY: right abd pain, no BM in 3 weeks, output xrays ?obs. TECHNIQUE: Multiaxial CT images of the abdomen and pelvis were performed following the use of intravenous and oral contrast. A dose lowering technique was utilized adhering to the principles of ALARA. COMPARISON STUDY: Abdomen and pelvis CT 01/28/2017. FINDINGS: Postoperative changes within the stomach. The liver, spleen, pancreas, and adrenal glands are unremarkable. Cholecystectomy. No retroperitoneal lymphadenopathy. The appendix is normal in size measuring up to 5 mm in diameter. The bladder, uterus, and left ovary are unremarkable. There is a 1.7 cm right ovarian cyst. This is similar to the prior study. No bowel wall thickening or obstruction. Moderate amount of liquid stool seen within the distal colon rectum. No fractures in the visualized osseous structures. IMPRESSION: 1. No bowel wall thickening or obstruction. 2. Normal appendix. 3. Moderate amount of liquid stool seen within the sigmoid colon and rectum. 4. No significant change in 1.7 cm right ovarian cyst. 5. Normal appendix. Electronically signed by: Leif Candelaria M.D. 02/14/2017 5:54 PM Dictated Date/Time: 02/14/2017 5:47 PM
[2017-02-14] MEDS ORDERED: FENTANYL CITRATE INJ 50 MCG/1 ML 2 ML VIAL IV STA (19:01)
[2017-02-14] MEDS ORDERED: BENTYL HOME PACK 10 MG VIAL PO ONE (19:30)
[2017-02-14] MEDS ORDERED: DICY20TA35 PO (19:30)
[2017-02-14 20:09] VITALS: BP 95/45; PULSE 75; O2SAT 98
== END 2017-02-14 20:09 | disposition home or self-care (01) ==
LOC: C.EDB 14:31
DX: R10.31 Right lower quadrant pain (principal); R10.11 Right upper quadrant pain; F41.9 Anxiety disorder, unspecified; F32.9 Major depressive disorder, single episode, unspecified; Z83.3 Family history of diabetes mellitus; Z82.49 Family history of ischemic heart disease and other diseases of the circulatory system

== ENCOUNTER 2017-12-08 07:36 | Emergency (ER) | payer OTHER ==
[~2017-12-08] VITALS: Ht 157.5 cm; Wt 71.8 kg
[~2017-12-08 07:36] MED LIST changes: -BUPR-83 PO; -HYDR-5688 PO; -LORA-741 PO; +METO1TAB54 PO; -MIRT30TA2 PO; -MULT-506 PO; +OMEP20TA PO; -OMEP40CA41 PO; -ONDA4TAB10 SL; -POLY335019 PO; +PRENTAB26 PO
[2017-12-08 07:42] VITALS: TEMP 36.9; Ht 157.5 cm; Wt 71.8 kg
[2017-12-08] MEDS ORDERED: SODIUM CHLORIDE 0.9% 1000ML 1,000 ML IV STA (07:54)
[2017-12-08] MEDS ORDERED: METOCLOPRAMIDE HCL INJ 5 MG/ML 2 ML VIAL IV STA (07:57)
[2017-12-08 08:20] LABS: BASO % 0.7 %; BASO ABS # 0.04 K/uL (0-0.2); EOS % 3.9 %; EOS ABS # 0.24 K/uL (0-0.5); HEMATOCRIT 34.4 % (37-47); HEMOGLOBIN 11.6 g/dL (12.0-16.0); IG# 0.01 K/uL (0.00-0.02); LYMPH % 28.3 %; LYMPH ABS # 1.72 K/uL (1.2-3.4); MEAN CELL VOLUME 87.3 fL (80-100); MEAN CORPUSCULAR HEMOGLOBIN 29.4 pg (25-34); MEAN CORPUSCULAR HGB CONC 33.7 g/dl (32-36); MEAN PLATELET VOLUME 9.9 fL (7.4-10.4); MONO % 6.3 %; MONO ABS # 0.38 K/uL (0.11-0.59); NEUT % 60.6 %; NEUT ABS # 3.69 K/uL (1.4-6.5); PLATELET COUNT 235 K/uL (130-400); RED CELL DISTRIBUTION WIDTH CV 14.3 % (11.5-14.5); RED CELL DISTRIBUTION WIDTH SD 45.9 fL (36.4-46.3); WHITE BLOOD COUNT 6.08 K/uL (4.8-10.8)
[2017-12-08] MEDS ORDERED: ACETAMINOPHEN 325 MG TAB PO STA (08:22)
[2017-12-08 08:39] LABS: ALBUMIN 3.3 gm/dl (3.4-5.0); ALKALINE PHOSPHATASE 63 U/L (45-117); ALT/SGPT 11 U/L (12-78); AST/SGOT 11 U/L (15-37); BLOOD UREA NITROGEN 9 mg/dl (7-18); CALCIUM 8.9 mg/dl (8.5-10.1); CARBON DIOXIDE 24 mmol/L (21-32); CREATININE 0.54 mg/dl (0.60-1.20); GLUCOSE 78 mg/dl (70-99); POTASSIUM 3.9 mmol/L (3.5-5.1); SODIUM 137 mmol/L (136-145); TOTAL PROTEIN 7.3 gm/dl (6.4-8.2)
[2017-12-08 09:09] VITALS: BP 113/66; PULSE 84; O2SAT 100
--- NOTE | 2017-12-08 09:14 | DIAGNOSTIC IMAGING REPORT ---
LTD 1 OR MORE FETUSES CLINICAL HISTORY: abd pain pain TECHNIQUE: Ultrasound COMPARISON STUDY: None FINDINGS: Single, viable intrauterine . heart rate is confirmed at 150 bpm. Posterior placenta. The maternal cervix is closed. The ovaries appear unremarkable. Fluid-filled bowel loop adjacent to the right ovary is noted. IMPRESSION: Single, viable intrauterine . Probable small bowel ileus. The above report was generated using voice recognition software. It may contain grammatical, syntax or spelling errors. Electronically signed by: Jose Tafoya M.D. 12/08/2017 9:12 AM Dictated Date/Time: 12/08/2017 9:10 AM
--- NOTE | 2017-12-08 09:51 | EMERGENCY ROOM VISIT NOTE ---
History Report prepared by Shyanne: Rayna Sinclair Under the Supervision of: Damari HintonO. First contact with patient: 07:48 Chief Complaint: ABDOMINAL PAIN Stated Complaint: PAIN IN LOWER STOMACH AND BACK, NAUSEA, DURANT History of Present Illness The patient is a 27 year old female who presents to the Emergency Room with complaints of worsening lower abdominal pain that started yesterday morning. The patient notes she had lower abdominal pain around her bladder yesterday but she states her symptoms improved with Tylenol. She woke up this morning feeling worse and she states that the pain now radiates from her lower abdomen into her back. The patient also complains of nausea and a headache. She reports she is currently 16 weeks and that this is her first . She states that she has experienced dehydration and vomiting with her . The patient denies any vaginal bleeding, vaginal discharge, diarrhea, and urinary symptoms, but reports chronic constipation. She reports a history of a gastric sleeve surgery and a splenectomy. She states she is currently taking vitamins, Reglan, and Prilosec. Source of History: patient Onset: yesterday morning Position: abdomen (lower) Quality: other (pain) Timing: worsening Modifying Factors (Relieving): tylenol Associated Symptoms: + headache, + nausea, + vomiting, No diarrhea, No urinary symptoms Note: also denies: vaginal bleeding or discharge Review of Systems See HPI for pertinent positives & negatives. A total of 10 systems reviewed and were otherwise negative. Past Medical & Surgical Medical Problems: (1) Abdominal pannus (2) Anxiety (3) borderline personality traits (4) Depression (5) Drug overdose - suicide (6) FX MID/PRX PHAL, HAND-CL (7) Gastric sleeve (8) Hx of migraines Surgical Problems: (1) History of cholecystectomy (2) History of splenectomy Family History Cancer Diabetes mellitus Hypertension Social History Smoking Status: Never Smoker Alcohol Use: none Drug Use: none Marital Status: single Housing Status: lives with family Occupation Status: employed Current/Historical Medications Scheduled Multivit/Min/Iron/Fol Ac/Pren ( Vitamin), 1 TAB PO DAILY Omeprazole (Omeprazole), 20 MG PO DAILY Sumatriptan Succinate (Imitrex), 100 MG PO PRN Scheduled PRN Metoclopramide Hcl (Reglan), 5 MG PO TID PRN for Nausea Allergies Coded Allergies: Clarithromycin (Unverified Adverse Reaction, Unknown, n/v, 12/08/17) Physical Exam Vital Signs Date Time Temp Pulse Resp B/P (MAP) Pulse Ox O2 Delivery O2 Flow Rate FiO2 12/08/17 09:09 84 17 113/66 100 Room Air 12/08/17 07:42 36.9 85 16 115/77 100 Room Air Physical Exam CONSTITUTIONAL/VITAL SIGNS: Reviewed / noted above. GENERAL: Non-toxic in appearance. INTEGUMENTARY: Warm, dry, and [place]. HEAD: Normocephalic. EYES: without scleral icterus or trauma. ENT/OROPHARYNX: clear and moist. LYMPHADENOPATHY/NECK: Is supple without lymphadenopathy or meningismus. RESPIRATORY: Lungs clear and equal. CARDIOVASCULAR: Regular rate and rhythm. GI/ABDOMEN: Soft. No organomegaly or pulsatile mass. No rebound or guarding. Normal bowel sounds. Tenderness over the suprapubic area. Gravid abdomen. EXTREMITIES: Warm and well perfused. BACK: No CVA tenderness. NEUROLOGICAL: Intact without focal deficits. PSYCHIATRIC: normal affect. MUSCULOSKELETAL: Normally developed with good muscle tone. Medical Decision & Procedures ER Provider Diagnostic Interpretation: Radiology results as stated below per my review and radiologist interpretation: LTD 1 OR MORE FETUSES CLINICAL HISTORY: abd pain pain TECHNIQUE: Ultrasound COMPARISON STUDY: None FINDINGS: Single, viable intrauterine . heart rate is confirmed at 150 bpm. Posterior placenta. The maternal cervix is closed. The ovaries appear unremarkable. Fluid-filled bowel loop adjacent to the right ovary is noted. IMPRESSION: Single, viable intrauterine . Probable small bowel ileus. The above report was generated using voice recognition software. It may contain grammatical, syntax or spelling errors. Electronically signed by: Jose Tafoya M.D. 12/08/2017 9:12 AM Dictated Date/Time: 12/08/2017 9:10 AM Laboratory Results 12/08/17 08:10 Red Blood Count 3.94, Mean Corpuscular Volume 87.3, Mean Corpuscular Hemoglobin 29.4, Mean Corpuscular Hemoglobin Concent 33.7, Mean Platelet Volume 9.9, Neutrophils (%) (Auto) 60.6, Lymphocytes (%) (Auto) 28.3, Monocytes (%) (Auto) 6.3, Eosinophils (%) (Auto) 3.9, Basophils (%) (Auto) 0.7, Neutrophils # (Auto) 3.69, Lymphocytes # (Auto) 1.72, Monocytes # (Auto) 0.38, Eosinophils # (Auto) 0.24, Basophils # (Auto) 0.04 12/08/17 08:10 Test 12/08/17 08:00 12/08/17 08:10 Urine Color YELLOW Urine Appearance CLEAR (CLEAR) Urine pH 7.0 (4.5-7.5) Urine Specific [place] 1.010 (1.000-1.030) Urine Protein NEG (NEG) Urine Glucose (UA) NEG (NEG) Urine Ketones NEG (NEG) Urine Occult Blood NEG (NEG) Urine Nitrite NEG (NEG) Urine Bilirubin NEG (NEG) Urine Urobilinogen NEG (NEG) Urine Leukocyte Esterase TRACE (NEG) Urine WBC (Auto) 1-5 /hpf (0-5) Urine RBC (Auto) 0-4 /hpf (0-4) Urine Hyaline Casts (Auto) 1-5 /lpf (0-5) Urine Epithelial Cells (Auto) 10-20 /lpf (0-5) Urine Bacteria (Auto) NEG (NEG) White Blood Count 6.08 K/uL (4.8-10.8) Red Blood Count 3.94 M/uL (4.2-5.4) Hemoglobin 11.6 g/dL (12.0-16.0) Hematocrit 34.4 % (37-47) Mean Corpuscular Volume 87.3 fL (80-100) Mean Corpuscular Hemoglobin 29.4 pg (25-34) Mean Corpuscular Hemoglobin Concent 33.7 g/dl (32-36) Platelet Count 235 K/uL (130-400) Mean Platelet Volume 9.9 fL (7.4-10.4) Neutrophils (%) (Auto) 60.6 % Lymphocytes (%) (Auto) 28.3 % Monocytes (%) (Auto) 6.3 % Eosinophils (%) (Auto) 3.9 % Basophils (%) (Auto) 0.7 % Neutrophils # (Auto) 3.69 K/uL (1.4-6.5) Lymphocytes # (Auto) 1.72 K/uL (1.2-3.4) Monocytes # (Auto) 0.38 K/uL (0.11-0.59) Eosinophils # (Auto) 0.24 K/uL (0-0.5) Basophils # (Auto) 0.04 K/uL (0-0.2) RDW Standard Deviation 45.9 fL (36.4-46.3) RDW Coefficient of Variation 14.3 % (11.5-14.5) Immature Granulocyte % (Auto) 0.2 % Immature Granulocyte # (Auto) 0.01 K/uL (0.00-0.02) Prothrombin Time 10.4 SECONDS (9.0-12.0) Prothromb Time International Ratio 1.0 (0.9-1.1) Activated Partial Thromboplast Time 24.0 SECONDS (21.0-31.0) Partial Thromboplastin Ratio 0.9 Anion Gap 9.0 mmol/L (3-11) Est Creatinine Clear Calc Drug Dose 146.5 ml/min Estimated GFR () > 150.0 Estimated GFR (Non- 130.2 BUN/Creatinine Ratio 16.4 (10-20) Calcium Level 8.9 mg/dl (8.5-10.1) Total Bilirubin 0.3 mg/dl (0.2-1) Aspartate Amino Transf (AST/SGOT) 11 U/L (15-37) Alanine Aminotransferase (ALT/SGPT) 11 U/L (12-78) Alkaline Phosphatase 63 U/L (45-117) Total Protein 7.3 gm/dl (6.4-8.2) Albumin 3.3 gm/dl (3.4-5.0) Globulin 4.0 gm/dl (2.5-4.0) Albumin/Globulin Ratio 0.8 (0.9-2) Human Chorionic Gonadotropin, Quant 84463 mIU/mL Laboratory results as stated above per my review. Medications Administered Medications (Trade) Dose Ordered Sig/Sergio Route Start Time Stop Time Status Last Admin Dose Admin Sodium Chloride 1,000 ml @ 999 mls/hr Q1H1M STAT IV 12/08/17 07:54 12/08/17 08:54 DC 12/08/17 08:15 999 MLS/HR Metoclopramide HCl (Reglan Inj) 10 mg NOW STAT IV 12/08/17 07:57 12/08/17 07:58 DC 12/08/17 08:15 10 MG Acetaminophen (Tylenol Tab) 650 mg NOW STAT PO 12/08/17 08:22 12/08/17 08:24 DC 12/08/17 08:27 650 MG ED Course 0749: Previous medical records were reviewed. The patient was evaluated in room A12B. A complete history and physical examination was performed. 0754: Ordered Sodium Chloride 1000 ml @ 999 mls/hr IV. 0757: Ordered Reglan Inj 10 mg IV. 0822: Ordered Acetaminophen 650 mg PO. 0952: On reevaluation, the patient is resting. I discussed the results and findings with the patient. She verbalized agreement of the treatment plan. The patient was discharged home. Medical Decision Differential considered: pancreatitis, hepatitis, or acute cholecystitis, AAA, UTI, pyelonephritis, kidney stones, appendicitis, diverticulitis, shingles, bowel obstruction mesenteric ischemia, intussusception,hernia, ovarian torsion, ruptured ovarian cyst,ectopic , . This is a 27-year-old female who presents to the ED with a chief complaint of abdominal pain. The pain is in the suprapubic area. She states that she started having the pain yesterday morning. She is currently 16 weeks . She is a . The patient denies any urinary symptoms, vaginal discharge or vaginal bleeding. She denies any flank or back pain. She has not having any new issues with her bowels. She does report a chronic history of constipation. The patient also reports frequent nausea and concerns about dehydration related to her early . She states that she has been taking Reglan for her nausea but has not required it recently. Her vital signs are normal. Her physical exam reveals some tenderness over the suprapubic area. She has a gravid abdomen consistent with her 16 week stated age. Exam is otherwise unremarkable. A pelvic ultrasound reveals a single intrauterine . No other abnormalities. CBC and complete metabolic panel were normal and a urine did not show infection. The patient was treated with IV fluids as well as IV Reglan. She was given oral Tylenol. She was told the results of the test. She is felt to be stable for discharge and outpatient follow-up. Patient states that she was feeling better at the time of discharge. Medication Reconcilliation Current Medication List: was personally reviewed by me Blood Pressure Screening Patient's blood pressure: Normal blood pressure Impression Primary Impression: Suprapubic abdominal pain Additional Impression: Second trimester Scribe Attestation The scribe's documentation has been prepared under my direction and personally reviewed by me in its entirety. I confirm that the note above accurately reflects all work, treatment, procedures, and medical decision making performed by me. Departure Information Dispostion Home / Self-Care Referrals Jorge Luis Schreiber M.D. (PCP) Forms HOME CARE DOCUMENTATION FORM, IMPORTANT VISIT INFORMATION Patient Instructions My [facility] Additional Instructions Follow-up with your doctor for further care and evaluation in 1-2 days. Return to the emergency department for worsening or new symptoms or any concerns. You have been examined and treated today on an emergency basis only. This is not a substitute for, or an effort to provide, complete comprehensive medical care. It is impossible to recognize and treat all injuries or illnesses in a single emergency department visit. It is therefore important that you follow up closely with your doctor. Call as soon as possible for an appointment. Your ultrasound today was normal. Blood work was also normal. Urine did not show infection or other abnormality. Contact your hand ii cutter tomorrow for follow-up and recheck. Problem Qualifiers
== END 2017-12-08 10:29 | disposition home or self-care (01) ==
LOC: C.EDB 07:38 → C.EDA 10:29
DX: O26.892 Other specified pregnancy related conditions, second trimester (principal); R10.2 Pelvic and perineal pain; G43.909 Migraine, unspecified, not intractable, without status migrainosus; Z3A.16 16 weeks gestation of pregnancy; Z88.8 Allergy status to other drugs, medicaments and biological substances; Z98.890 Other specified postprocedural states

== ENCOUNTER 2024-11-24 15:54 | Observation (INO) ==
[2024-11-24] MEDS: SODIUM CHLORIDE 0.9% 1,000 ML IV ONE (16:28)
[2024-11-24 16:38] LABS: Hematocrit (blood only) 37.4 % (37.0-47.0); Hemoglobin 12.4 g/dl (12.0-16.0); Immature Granulocytes # (auto) 0.00 K/uL (0.01-0.20); Immature Granulocytes % (auto) 0.0 %; Mean Corpuscular Hemoglobin 28.5 pg (25.0-34.0); Mean Corpuscular Volume 86.0 fL (80.0-100.0); Platelet Count 240 K/uL (130-400); RDW Standard Deviation 39.3 fL (36.4-46.3); Red Blood Count 4.35 M/uL (4.20-5.40); White Blood Count 4.49 K/ul (4.8-10.8)
[2024-11-24] MEDS: HYDROmorphone INJ 1 MG/ML SYRINGE IV STA ×2 (16:48→18:25)
[2024-11-24] MEDS: ONDANSETRON INJ 2 MG/ML 2 ML VIAL IV STA (16:48)
[2024-11-24 16:58] LABS: Alanine Aminotransferase 8.0 U/L (7-52); Alkaline Phosphatase 68.0 U/L (34-104); Anion Gap 9.0 (3-11); Bilirubin,Total 0.3 mg/dl (0.2-1.0); Blood Urea Nitrogen 13.0 mg/dl (6-23); Calcium 9.1 mg/dl (8.6-10.3); Carbon Dioxide 24.0 mmol/L (21-32); Chloride 106.0 mmol/L (98-107); Creatinine Clr Calc Pharmacy 78.4 ml/min; Glucose 94.0 mg/dl (70-99(Fasting)); Lipase 23.0 U/L (11-82); Potassium 4.0 mmol/L (3.5-5.1); Sodium 139.0 mmol/L (136-145); Total Protein 7.7 gm/dl (6.0-8.3)
--- NOTE | 2024-11-24 17:38 | XRay Report ---
Clinical History: Abdominal pain Technique: 4 views of the chest and abdomen were obtained Findings: There are no confluent pulmonary infiltrates. The heart size is within normal limits. No pleural effusion or pneumothorax is seen. There is no definite pulmonary nodule. There is moderate severity constipation. There is no definite sign of bowel obstruction. Surgical clips are seen suggestive of prior cholecystectomy. No definite renal or ureteral calculi are seen Impression: 1. No pulmonary infiltrate 2. Constipation ACT 112: Positive. There are findings on this exam that require communication between the performing entity and the patient following Patient Test Result Information Act ([place] ACT 112) guidelines. Electronically signed by Nii Guevara 11-24-2024 5:33 PM
--- NOTE | 2024-11-24 18:14 | Ultrasound Report ---
Clinical history: Left flank pain. Known hydronephrosis Technique: Renal sonography was performed Findings: The kidneys are of normal size and echogenicity. The right kidney measures 10.5 cm in length and the left kidney measures 11.2 cm in length. There is moderate to severe left hydronephrosis. No definite renal calculus or mass is seen. No bladder calculus or mass is identified. A left ureteral jet was not seen Impression: Moderate to severe left hydronephrosis ACT 112: Positive. There are findings on this exam that require communication between the performing entity and the patient following Patient Test Result Information Act ([place] ACT 112) guidelines. Electronically signed by Nii Guevara 11-24-2024 6:10 PM
--- NOTE | 2024-11-24 18:37 | History & Physical Report ---
Date of Service November 24, 2024 Assessment & Plan (1) UPJ obstruction, acquired: Plan This is a 34 yr old F who has a significant PMH of Chronic L hydronephrosis, hx of migraine, BELLA, depression, WILLIAM, hx of borderline personality disorder who presents to ED 2/2, hx of gastrectomy who presents to ED 2/2 worsening flank pain. #UPJ Obstruction #L flank pain #nausea and vomiting admit to med/surg consult urology clear liquids, NPO after midnight plan for robotic assisted L pyeloplasty felt mod-severe L hydronephrosis 2/2 crossing vessel, outpt imaging revealed reduced L renal function pain control, antiemetics, will place on bowel regimen given chronic constipation NSS 80cc/hr Empiric IV ceftriaxone given pending urine and upcoming procedure, d/c when appropriate Chronic conditions include: Depression with anxiety, hx of Borderline personality d/o, migraines, BELLA, hx of gastrectomy: cont home meds DVT ppx: none for now, pt ambulatory, pending procedure FULL CODE PCP: Brianne Knott Dispo: admit to med/surg, possible procedure tomorrow Pt was seen and examined in collaboration with Dr. Graves please see addendum I spent a total of 76 minutes coordinating, documenting and providing care for this patient excluding time spent in the performance of separately billed services or time spent by another provider/QHP. History of Present Illness Chief Complaint: Flank pain. Primary Care Provider: Jose Ramon Heller MD This is a 34 yr old F who has a significant PMH of Chronic L hydronephrosis, hx of migraine, BELLA, depression, WILLIAM, hx of borderline personality disorder who presents to ED 2/2, hx of gastrectomy who presents to ED 2/2 worsening flank pain. Patient has recently been following with outpatient [facility] urology, Dr. Wallace. She currently has a planned procedure scheduled for 12/03/2024. She has been experiencing significant left-sided flank pain with radiation to the anterior aspect of the left side of her abdomen. Pain has been debilitating. She has had significant nausea and vomiting and has been unable to tolerate liquid or solid food. She was last seen in outpatient clinic by Dr. Wallace on 10/27/2024. She underwent further investigation of her left flank pain which revealed decreased renal function of the left kidney on and MAG 3. Per Dr. Wallace's recent note it appears that the left sided UPJ obstruction is secondary to a crossing vessel to the lower pole of her kidney. She has poorly tolerated stents in the past. Plan is to undergo robotic assisted laparoscopic left pyeloplasty. She was seen and evaluated in ED last evening due to worsening pain and inability to manage at home. She ended up being discharged home. Due to inability to tolerate anything oral she returned back today. She reports she has not been urinating normally. She reports it just comes out in, "drops." She denies any burning, increased urg/freq or hematuria. She has chronic constipation at baseline. She has a urine culture pending from yesterday which is reincubating growing pinpoint colonies. She states that she was told to start an antibiotic on 11/26 prior to her procedure with Macrobid. Patient's mother is at bedside who also helps elicit history. Patient's external chart was reviewed as well. In ED patient remained hemodynamically stable. Renal ultrasound showed moderate to severe left-sided hydronephrosis with absence of a left ureteral jet. Her white blood cell count was within normal limits. Urology service was contacted and recommended admission to hospital and n.p.o. after midnight for possible procedure tomorrow. Allergies Allergy/AdvReac Type Severity Reaction Status Date / Time ketorolac [From Toradol] AdvReac Unknown Vomiting Verified 11/24/24 12:15 NSAIDS (Non-Steroidal AdvReac Unknown VOMITING/CONTRAINDICATED Verified 11/24/24 12:15 Anti-Inflamma WITH GASTRIC SLEEVE. Home Medications Medication Instructions Recorded Confirmed Type amitriptyline 10 mg tablet 30 mg PO HS 11/02/22 11/24/24 History bupropion HCl 100 mg tablet 150 mg PO UD 11/02/22 11/24/24 History cyanocobalamin (vitamin B-12) 1,000 mcg IM .[id number] 01/11/24 11/24/24 History 1,000 mcg/mL injection solution acetaminophen 500 mg tablet 500 mg PO UD PRN Pain 02/05/24 11/24/24 History ondansetron 4 mg disintegrating 4 mg PO Q8H PRN nausea and 09/16/24 11/24/24 Rx tablet vomiting #14 tabs nitrofurantoin 100 mg PO BID 7 days #14 caps 11/23/24 11/24/24 Rx monohydrate/macrocrystals 100 mg capsule (Macrobid) bupropion HCl 100 mg tablet 100 mg PO QAM 11/24/24 11/24/24 History oxycodone 5 mg tablet 10 mg PO Q4H PRN pain 11/24/24 11/24/24 History Past Med/Surg History Problem List UPJ obstruction, acquired (Acute) Dislocation of left patella Closed patellar dislocation Anterior knee pain Intertrigo Chest discomfort Encounter for pre-operative examination Tear of meniscus of left knee Right lower quadrant abdominal pain (Acute) Abdominal pannus Hx of migraines UTI (urinary tract infection) (Acute) Flank pain (Acute) Pelvic pain (Acute) Intractable abdominal pain (Acute) Vomiting (Acute) Elevated LFTs (Acute) Intractable migraine (Acute) Dehydration (Acute) Abdominal pain (Acute) Pancreatitis (Acute) Medical History History of COVID-19 approx 2019. No hx hospitalization. Hydronephrosis, left UPJ obstruction, acquired Hx of pancreatitis (2014) per medical record - pt denies - states she had an ERCP after gastric sleeve due to post op complications. Hx of splenomegaly (2017) pt did not have her spleen removed, "it enlarged after giving and resolved on its own" Motion sickness severe History of kidney stones History of anemia History of cardiac murmur as a child Anxiety and depression IBS (irritable bowel syndrome) GERD (gastroesophageal reflux disease) under control at current per pt Migraine "occasionally" Surgical History History of ERCP (2014) History of hysterectomy [place] and LSO H/O mastopexy History of bilateral tubal ligation H/O cystoscopy stone removal History of tonsillectomy and adenoidectomy Nausea and vomiting after administration of anesthetic agent has used the scope patch in the past with relief. History of colonoscopy History of esophagogastroduodenoscopy (EGD) History of cholecystectomy [place] teeth extracted Hx of arthroscopy of left knee x3 History of laparoscopy r/t endometriosis S/P panniculectomy History of sleeve gastrectomy 2014 Family History Father Diabetes Mother Family history of reaction to anesthesia n/v Other Lung cancer Social History Smoking Status: Never smoker Second Hand Exposure: No; Do You Dip or Chew Tobacco: No; Hx Alcohol Use: No Hx Substance Use: No Preferred Language: Norwegian Communication Ability: Effective Cotton Stomper Required: No Beliefs That Will Affect Care: None marital status: Current Living Situation: Spouse and Family Current Living Situation Comment: and 3 sons Feels Safe at Home: Yes Assistive Devices: Contacts and Glasses Review of Systems Review of Systems: All systems reviewed & are unremarkable except as noted in HPI & below Physical Exam Physical Exam: Constitutional: WD/WN, appears in pain, vitals as above, NAD, sitting up in bed, pleasant, conversing easily Head: Normocephalic, Atraumatic Eyes: conjunctivae normal, anicteric sclerae ENMT: external ear and nose normal, oropharynx normal Neck: trachea midline, no thyromegaly normal visual inspection Respiratory: normal respiratory effort, lungs clear to auscultation, no wheeze, rales, rhonchi. Cardiovascular: RRR, no murmur, no edema Vessels: no JVD or carotid bruit Abdomen: normal bowel sounds, soft, nontender, no hepatosplenomegaly , + L CVA Tenderness Musculoskeletal: arom x 4 Skin: no rashes, warm and dry normal turgor Neurologic: PERRL, EOMI, accommodation nl, no face palsy, no dysarthria CN's II-XI intact bilaterally and moves all extremities Psychiatric: A+Ox3, euthymic affect Lymphatic: no cervical or axillary lymphadenopathy Results & Data Results & Data Vital Signs (Past 12 Hours) Vital Signs Temp Pulse Pulse Resp BP BP Pulse Ox 11/24/24 18:29 100 11/24/24 18:17 96 H 12 132/87 100 11/24/24 17:20 82 11/24/24 17:19 95 H 16 134/91 99 11/24/24 16:52 97 H 18 121/89 100 11/24/24 16:26 95 H 18 100 11/24/24 16:26 102 H 24 128/86 100 11/24/24 15:55 36.6 C 100 H 18 136/86 99 O2 Del Method 11/24/24 18:29 Room Air 11/24/24 18:17 Room Air 11/24/24 17:20 11/24/24 17:19 Room Air 11/24/24 16:52 Room Air 11/24/24 16:26 Room Air 11/24/24 16:26 Room Air 11/24/24 15:55 Laboratory Results I have independently reviewed and interpreted patient's admitting labs including CBC, CMP,, lipase Diagnostic Findings Chest/Abdomen X-ray 11/24/24 16:37 Clinical History: Abdominal pain Technique: 4 views of the chest and abdomen were obtained Findings: There are no confluent pulmonary infiltrates. The heart size is within normal limits. No pleural effusion or pneumothorax is seen. There is no definite pulmonary nodule. There is moderate severity constipation. There is no definite sign of bowel obstruction. Surgical clips are seen suggestive of prior cholecystectomy. No definite renal or ureteral calculi are seen Impression: 1. No pulmonary infiltrate 2. Constipation ACT 112: Positive. There are findings on this exam that require communication between the performing entity and the patient following Patient Test Result Information Act ([place] ACT 112) guidelines. Electronically signed by Nii Guevara 11-24-2024 5:33 PM Renal Ultrasound 11/24/24 16:37 Clinical history: Left flank pain. Known hydronephrosis Technique: Renal sonography was performed Findings: The kidneys are of normal size and echogenicity. The right kidney measures 10.5 cm in length and the left kidney measures 11.2 cm in length. There is moderate to severe left hydronephrosis. No definite renal calculus or mass is seen. No bladder calculus or mass is identified. A left ureteral jet was not seen Impression: Moderate to severe left hydronephrosis ACT 112: Positive. There are findings on this exam that require communication between the performing entity and the patient following Patient Test Result Information Act ([place] ACT 112) guidelines. Electronically signed by Nii Guevara 11-24-2024 6:10 PM Medications Administered Medication List Discontinued Medications Hydromorphone HCl (Hydromorphone Inj 1 Mg/Ml Syringe) 1 mg IV NOW STA Stop: 11/24/24 16:38 Last Admin: 11/24/24 16:48 Dose: 1 mg Documented By: NRB Hydromorphone HCl (Hydromorphone Inj 1 Mg/Ml Syringe) 1 mg IV NOW STA Stop: 11/24/24 18:23 Last Admin: 11/24/24 18:25 Dose: 1 mg Documented By: NRB Sodium Chloride (Nss) 1,000 mls @ 999 mls/hr IV .Q1H1M ONE Stop: 11/24/24 17:10 Last Infusion: 11/24/24 18:14 Dose: Infused Documented By: Admin: 11/24/24 16:28 Dose: 999 mls/hr Documented By: NRB Ondansetron HCl (Ondansetron Inj 2 Mg/Ml 2 Ml Vial) 4 mg IV NOW STA Stop: 11/24/24 16:38 Last Admin: 11/24/24 16:48 Dose: 4 mg Documented By: NRB COVID-19 Results Results COVID-19 Adm Lab Results: RBC 4.35 M/uL (4.20-5.40) 11/24/24 WBC 4.49 K/ul (4.8-10.8) L 11/24/24 Hgb 12.4 g/dl (12.0-16.0) 11/24/24 Hct 37.4 % (37.0-47.0) 11/24/24 Plt Count 240 K/uL (130-400) 11/24/24 Neutrophils (%) (Auto) 54.6 % 11/24/24 Lymphocytes (%) (Auto) 29.6 % 11/24/24 Monocytes # (Auto) 0.41 K/uL (0.11-0.59) 11/24/24 Eosinophils # (Auto) 0.25 K/uL (0.00-0.50) 11/24/24 Immature Granulocyte % (Auto) 0.0 % 11/24/24 Neutrophils # (Auto) 2.45 K/uL (1.40-6.50) 11/24/24 Lymphocytes # (Auto) 1.33 K/uL (1.20-3.40) 11/24/24 Monocytes # (Auto) 0.41 K/uL (0.11-0.59) 11/24/24 Eosinophils # (Auto) 0.25 K/uL (0.00-0.50) 11/24/24 Basophils # (Auto) 0.05 K/uL (0.00-0.20) 11/24/24 Immature Granulocyte # (Auto) 0.00 K/uL (0.01-0.20) L 11/24 Na 139 mmol/L (136-145) 11/24/24 K 4.0 mmol/L (3.5-5.1) 11/24/24 Cl 106 mmol/L (98-107) 11/24/24 CO2 24 mmol/L (21-32) 11/24/24 Anion Gap 9 (3-11) 11/24/24 BUN 13 mg/dl (6-23) 11/24/24 Creatinine 0.94 mg/dl (0.6-1.2) 11/24/24 BUN/Creatinine Ratio 13.8 (10-20) 11/24/24 Glucose Level 94 mg/dl (70-99(Fasting)) 11/24/24 Ca 9.1 mg/dl (8.6-10.3) 11/24/24 Total Bilirubin 0.3 mg/dl (0.2-1.0) 11/24/24 Direct Bilirubin 0.1 mg/dl (0-0.2) 11/24/24 AST/SGOT 14 U/L (13-39) 11/24/24 ALT/SGPT 8 U/L (7-52) 11/24/24 Alkaline Phosphatase 68 U/L (34-104) 11/24/24 Total Protein 7.7 gm/dl (6.0-8.3) 11/24/24 Albumin 4.5 gm/dl (3.4-5.0) 11/24/24 Code Status & VTE Plan Code Status FULL CODE VTE Prophylaxis Plan VTE Prophylaxis will be ordered: No Supervising Physician Co-Signing Physician Notes Attending addendum: The patient was seen and examined in the emergency room in presence of the mother She has been complaining of ongoing pain in the left side of the abdomen that goes down to the groin No fever and no chills and no dysuria On examination Lying in bed with distress due to left-sided abdominal pain Hemodynamically stable and is afebrile Chest was clear to auscultate bilaterally HeartS1, S2 regular Abdomennot enlarged, tender in the left And left renal angle and bowel sounds present Extremitiesno edema CNSalert awake oriented x 3 Her labs and imaging studies reviewed No evidence of infection and no evidence of KARLY given Severe left hydronephrosis secondary to ureteric obstruction Appreciate urology input and recommendation for procedure tomorrow in the OR Agree with assessment plan as outlined above by Neda Boles PA-C and take the full responsibility of care in the hospital Dr Samy Graves
--- NOTE | 2024-11-24 19:05 | Emergency Department Note ---
History of Present Illness General Chief Complaint: Abdominal Pain Stated Complaint: ABD PAIN, BACK PAIN, VOMITING Time Seen by Provider: 11/24/24 16:09 History of Present Illness Provider Complaint: flank pain Onset (ago): 3 day(s) Pain Consistency: intermittent Location: L flank Radiation: none Severity: severe Maximum Pain Intensity: 9 Current Pain Intensity: 9 Quality: + stabbing and + sharp Relieved By: + nothing Exacerbated By: + nothing Context: + history of similar episodes (Ureteral obstruction scheduled for surgery with Dr. Wallace later in November); no foreign travel, no possible food poisoning, no sick contacts, no recent antibiotic use, no recent surgery/procedure or no recent injury Associated Symptoms: + nausea and + vomiting; no diarrhea, no fever, no chills, no constipation, no dysuria, no hematemesis, no hematochezia, no melena, no hematuria, no syncope, no headache, no neck pain, no chest pain and no breathing difficulty Related Data Patient Confirmed : No Gestational Age Based on EDC: 26 Wks 0 D Home Medications Medication Instructions Recorded Confirmed Type amitriptyline 10 mg tablet 30 mg PO HS 11/02/22 11/24/24 History bupropion HCl 100 mg tablet 150 mg PO UD 11/02/22 11/24/24 History cyanocobalamin (vitamin B-12) 1,000 mcg IM .[id number] 01/11/24 11/24/24 History 1,000 mcg/mL injection solution acetaminophen 500 mg tablet 500 mg PO UD PRN Pain 02/05/24 11/24/24 History ondansetron 4 mg disintegrating 4 mg PO Q8H PRN nausea and 09/16/24 11/24/24 Rx tablet vomiting #14 tabs nitrofurantoin 100 mg PO BID 7 days #14 caps 11/23/24 11/24/24 Rx monohydrate/macrocrystals 100 mg capsule (Macrobid) bupropion HCl 100 mg tablet 100 mg PO QAM 11/24/24 11/24/24 History oxycodone 5 mg tablet 10 mg PO Q4H PRN pain 11/24/24 11/24/24 History Allergies Allergy/AdvReac Type Severity Reaction Status Date / Time ketorolac [From Toradol] AdvReac Unknown Vomiting Verified 11/24/24 12:15 NSAIDS (Non-Steroidal AdvReac Unknown VOMITING/CONTRAINDICATED Verified 11/24/24 12:15 Anti-Inflamma WITH GASTRIC SLEEVE. Past Med/Surg History Problem List (Updated 11/24/24 @ 19:05 by Harish Quinonez MD) UPJ obstruction, acquired (Acute) Dislocation of left patella Closed patellar dislocation Anterior knee pain Intertrigo Chest discomfort Encounter for pre-operative examination Tear of meniscus of left knee Right lower quadrant abdominal pain (Acute) Abdominal pannus Hx of migraines UTI (urinary tract infection) (Acute) Flank pain (Acute) Pelvic pain (Acute) Intractable abdominal pain (Acute) Vomiting (Acute) Elevated LFTs (Acute) Intractable migraine (Acute) Dehydration (Acute) Abdominal pain (Acute) Pancreatitis (Acute) Medical History History of COVID-19 approx 2019. No hx hospitalization. Hydronephrosis, left UPJ obstruction, acquired Hx of pancreatitis (2014) per medical record - pt denies - states she had an ERCP after gastric sleeve due to post op complications. Hx of splenomegaly (2017) pt did not have her spleen removed, "it enlarged after giving and resolved on its own" Motion sickness severe History of kidney stones History of anemia History of cardiac murmur as a child Anxiety and depression IBS (irritable bowel syndrome) GERD (gastroesophageal reflux disease) under control at current per pt Migraine "occasionally" Surgical History History of ERCP (2014) History of hysterectomy [place] and LSO H/O mastopexy History of bilateral tubal ligation H/O cystoscopy stone removal History of tonsillectomy and adenoidectomy Nausea and vomiting after administration of anesthetic agent has used the scope patch in the past with relief. 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 Beliefs That Will Affect Care: None marital status: Current Living Situation: Spouse and Family Current Living Situation Comment: and 3 sons Feels Safe at Home: Yes Assistive Devices: Contacts and Glasses Physical Exam 2 Vital Signs: Vital Signs - 24 hr 11/24/24 15:55 11/24/24 16:26 11/24/24 16:26 Temperature 36.6 C Temperature Source Oral Pulse Rate 100 H 95 H Pulse Rate [Right Finger] 102 H Respiratory Rate 18 24 18 Respiratory Effort / Characteristics Non-Labored Sponta neous Respiratory Depth Normal Respiratory Patter n Blood Pressure 136/86 Blood Pressure [Ri ght Arm] 128/86 Blood Pressure Therese n 102 Blood Pressure Therese n [Right Arm] 100 Pulse Oximetry 99 100 100 Oxygen Delivery Me thod Room Air Room Air Sepsis Recent Feve r Within 48 Hours No Sepsis New/Unexpla ined Change in Men anca Status N/A Sepsis Action Take n by Nursing No Action Required 11/24/24 16:52 11/24/24 17:19 11/24/24 17:20 Temperature Temperature Source Pulse Rate 82 Pulse Rate [Right Finger] 97 H 95 H Respiratory Rate 18 16 Respiratory Effort / Characteristics Non-Labored Sponta neous Non-Labored Sponta neous Respiratory Depth Normal Normal Respiratory Patter n Regular Blood Pressure Blood Pressure [Ri ght Arm] 121/89 134/91 Blood Pressure Therese n Blood Pressure Therese n [Right Arm] 99 105 Pulse Oximetry 100 99 Oxygen Delivery Me thod Room Air Room Air Sepsis Recent Feve r Within 48 Hours Sepsis New/Unexpla ined Change in Men anca Status Sepsis Action Take n by Nursing 11/24/24 18:17 11/24/24 18:29 11/24/24 18:49 Temperature Temperature Source Pulse Rate Pulse Rate [Right Finger] 96 H 88 Respiratory Rate 12 26 H Respiratory Effort / Characteristics Non-Labored Sponta neous Non-Labored Sponta neous Respiratory Depth Normal Normal Respiratory Patter n Regular Regular Blood Pressure Blood Pressure [Ri ght Arm] 132/87 142/90 H Blood Pressure Therese n Blood Pressure Therese n [Right Arm] 102 107 Pulse Oximetry 100 100 99 Oxygen Delivery Me thod Room Air Room Air Room Air Sepsis Recent Feve r Within 48 Hours Sepsis New/Unexpla ined Change in Men anca Status Sepsis Action Take n by Nursing Physical Exam: Physical Exam GENERAL: oriented to person, place, and time. appears well-developed and well- nourished. She does not appear distressed. HENT: Exam performed. -Head: Normocephalic and atraumatic. -Right Ear: External ear normal. No mastoid erythema -Left Ear: External ear normal. No mastoid erythema -Mouth/Throat: The oropharynx is clear and moist. No trismus in the jaw. No dental abscesses or uvula swelling. No oropharyngeal exudate or tonsillar abscesses. EYES: Conjunctivae and EOM are normal.Right eye exhibits no discharge. Left eye exhibits no discharge. No scleral icterus. NECK: Normal range of motion. Neck supple. No JVD present. No tracheal deviation and normal range of motion present. CV: Normal rate, regular rhythm, normal heart sounds and intact distal pulses. There is no peripheral edema. Palpable radial pulses bue. PULM/CHEST: Effort normal and breath sounds normal. No respiratory distress. No stridor. no wheezes.no rales. -Chest Wall: no tenderness to palpation ABD: The abdomen is soft. Bowel sounds are normal. no distension. No mass is present. There is no tenderness. There is no rebound, no guarding, no Driver's sign and no tenderness at McBurney's point. Rovsig negative. Left-sided CVA tenderness. MUSC/SKEL: Normal range of motion. There is no peripheral edema, tenderness or deformity. NEURO: Motor and sensation grossly intact. SKIN: Skin is warm and dry. not diaphoretic. PSYCH: normal mood and affect. Behavior is normal. Judgment and thought content normal. Course Course 1609: The patient was evaluated in room C4. A complete history and physical exam was performed Cardiac monitoring: An order was placed for continuous cardiac monitoring. The monitor shows a rate of 90 with sinus rhythm interpreted by me 1830: Vital signs stable. Labs and imaging are unremarkable. Discussed case with on-call urology Dr. Phillips who recommend the patient be admitted for pain control. [facility]. Administ[facility] Medications Discontinued Medications Hydromorphone HCl (Hydromorphone Inj 1 Mg/Ml Syringe) 1 mg IV NOW STA Stop: 11/24/24 16:38 Last Admin: 11/24/24 16:48 Dose: 1 mg Documented By: JHONATAN Hydromorphone HCl (Hydromorphone Inj 1 Mg/Ml Syringe) 1 mg IV NOW STA Stop: 11/24/24 18:23 Last Admin: 11/24/24 18:25 Dose: 1 mg Documented By: JHONATAN Sodium Chloride (Nss) 1,000 mls @ 999 mls/hr IV .Q1H1M ONE Stop: 11/24/24 17:10 Last Infusion: 11/24/24 18:14 Dose: Infused Documented By: NRBailey Admin: 11/24/24 16:28 Dose: 999 mls/hr Documented By: JHONATAN Ondansetron HCl (Ondansetron Inj 2 Mg/Ml 2 Ml Vial) 4 mg IV NOW STA Stop: 11/24/24 16:38 Last Admin: 11/24/24 16:48 Dose: 4 mg Documented By: JHONATAN Medical Decision Making Medical Records Attestation: I reviewed the patient's medical records. Medical records reviewed. Patient follows with Dr. Wallace From urology. 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 Patient is to have a robotic assisted laparoscopic left pyeloplasty. Patient was seen in the emergency department yesterday and had normal blood work and a CT scan which showed moderate left- sided hydronephrosis without obstruction, unchanged. Laboratory Data Attestation: I reviewed the patient's lab results. 11/24/24 16:20 11/24/24 16:20 Lab Results 11/24/24 Range/Units 16:20 WBC 4.49 L (4.8-10.8) K/ul RBC 4.35 (4.20-5.40) M/uL Hgb 12.4 (12.0-16.0) g/dl Hct 37.4 (37.0-47.0) % MCV 86.0 (80.0-100.0) fL MCH 28.5 (25.0-34.0) pg MCHC 33.2 (32.0-36.0) g/dL RDW Std Deviation 39.3 (36.4-46.3) fL RDW Coeff of Miriam 12.6 (11.5-14.5) % Plt Count 240 (130-400) K/uL MPV 10.3 (9.4-12.4) fL Immature Gran % (Auto) 0.0 % Neut % (Auto) 54.6 % Lymph % (Auto) 29.6 % [place] % (Auto) 9.1 % Eos % (Auto) 5.6 % Baso % (Auto) 1.1 % Neut # (Auto) 2.45 (1.40-6.50) K/uL Lymph # (Auto) 1.33 (1.20-3.40) K/uL [place] # (Auto) 0.41 (0.11-0.59) K/uL Eos # (Auto) 0.25 (0.00-0.50) K/uL Baso # (Auto) 0.05 (0.00-0.20) K/uL Immature Gran # (Auto) 0.00 L (0.01-0.20) K/uL Sodium 139 (136-145) mmol/L Potassium 4.0 (3.5-5.1) mmol/L Chloride 106 (98-107) mmol/L Carbon Dioxide 24 (21-32) mmol/L Anion Gap 9 (3-11) BUN 13 (6-23) mg/dl Creatinine 0.94 (0.6-1.2) mg/dl Est Cr Clr Drug Dosing 78.4 ml/min eGFR 82.17 BUN/Creatinine Ratio 13.8 (10-20) Glucose 94 (70-99(Fasting)) mg/dl Calcium 9.1 (8.6-10.3) mg/dl Total Bilirubin 0.3 (0.2-1.0) mg/dl Direct Bilirubin 0.1 (0-0.2) mg/dl AST 14 (13-39) U/L ALT 8 (7-52) U/L Alkaline Phosphatase 68 (34-104) U/L Total Protein 7.7 (6.0-8.3) gm/dl Albumin 4.5 (3.4-5.0) gm/dl Lipase 23 (11-82) U/L Imaging Data Attestation: I personally reviewed and interpreted this imaging study as follows: My Impression: Renal ultrasound: left-sided hydronephrosis Radiologist's Impression: Chest/Abdomen X-ray 11/24/24 16:37 Clinical History: Abdominal pain Technique: 4 views of the chest and abdomen were obtained Findings: There are no confluent pulmonary infiltrates. The heart size is within normal limits. No pleural effusion or pneumothorax is seen. There is no definite pulmonary nodule. There is moderate severity constipation. There is no definite sign of bowel obstruction. Surgical clips are seen suggestive of prior cholecystectomy. No definite renal or ureteral calculi are seen Impression: 1. No pulmonary infiltrate 2. Constipation ACT 112: Positive. There are findings on this exam that require communication between the performing entity and the patient following Patient Test Result Information Act ([place] ACT 112) guidelines. Electronically signed by Nii Guevara 11-24-2024 5:33 PM Renal Ultrasound 11/24/24 16:37 Clinical history: Left flank pain. Known hydronephrosis Technique: Renal sonography was performed Findings: The kidneys are of normal size and echogenicity. The right kidney measures 10.5 cm in length and the left kidney measures 11.2 cm in length. There is moderate to severe left hydronephrosis. No definite renal calculus or mass is seen. No bladder calculus or mass is identified. A left ureteral jet was not seen Impression: Moderate to severe left hydronephrosis ACT 112: Positive. There are findings on this exam that require communication between the performing entity and the patient following Patient Test Result Information Act ([place] ACT 112) guidelines. Electronically signed by Nii Guevara 11-24-2024 6:10 PM [facility] Narrative 1609: The patient was evaluated in room C4. A complete history and physical exam was performed Cardiac monitoring: An order was placed for continuous cardiac monitoring. The monitor shows a rate of 90 with sinus rhythm interpreted by me 1830: Vital signs stable. Labs and imaging are unremarkable. Discussed case with on-call urology Dr. Phillips who recommend the patient be admitted for pain control. [facility] Impression & Plan UPJ obstruction, acquired, Flank pain Discharge Plan Visit Data Chief Complaint: Abdominal Pain Stated Complaint: ABD PAIN, BACK PAIN, VOMITING ED Provider: Harish Quinonez Discharge Problem: UPJ obstruction, acquired, Flank pain Patient Disposition: Admitted As Inpatient Condition: Fair Forms Stand Alone Forms: [employer] Mobile Prescriptions Prescriptions: No Action nitrofurantoin monohyd/m-cryst [Macrobid] 100 mg capsule 100 mg PO BID 7 Days Qty: 14 0RF Patient Comments: started 11/23/24 Rx Instructions: must administer with a meal/food take for 7 days ordered 11/23/24 bupropion HCl 100 mg tablet 150 mg PO UD Patient Comments: 100 mg morning, 150 mg at noon, 150 mg at bedtime Rx Instructions: 150 MG @ NOON & HS. amitriptyline 10 mg tablet 30 mg PO HS cyanocobalamin (vitamin B-12) 1,000 mcg/mL Solution 1,000 mcg IM .[id number] ondansetron 4 mg tablet,disintegrating 4 mg PO Q8H PRN (Reason: nausea and vomiting) Qty: 14 0RF acetaminophen 500 mg Tablet 500 mg PO UD PRN (Reason: Pain) oxycodone 5 mg tablet 10 mg PO Q4H PRN (Reason: pain) bupropion HCl 100 mg tablet 100 mg PO QAM Referrals Referrals: Jose Ramon Heller MD [Primary Care Provider] -
[2024-11-24] MEDS: PROMETHAZINE 12.5 MG/50.5 ML BAG IV STA (19:45)
--- NOTE | 2024-11-24 19:48 | Urology Consultation ---
Date of Consultation November 24, 2024 Assessment & Plan (1) UPJ obstruction, acquired: Patient has been admitted on the hospitalist service. From a urologic perspective we recommend the following: Provide analgesics Provide antiemetics Will continue to monitor the patient's urine culture that was sent on 11/23/2024. If this shows bacterial growth antibiotic should be initiated Would hydrate with IV fluids Recommend making patient n.p.o. after midnight tonight Patient be evaluated by [facility] urology team on 11/25/2024 and a determination was made if patient will require cystoscopic intervention with stent placement which may help curtail some of her pain until she can have her definitive surgical procedure performed At the time of my interview the patient was nontoxic-appearingthat she was normotensive without tachycardia or fever and did not exhibit leukocytosis. Additional recommendations be forthcoming based on her clinical course as unfolds History of Present Illness Reason for Consultation: Left-sided hydronephrosis History of Present Illness This is a 34-year-old female who presented to the emergency department secondary to left flank pain. The patient does follow with urology, Dr. Wallace of [facility] urology. Patient notes that she has a history of left flank pain secondary to hydronephrosis for which she follows with Dr. Wallace as described above. The patient notes that she had her most recent CAT scan on 11/23/2024. This study showed the patient had moderate left-sided hydronephrosis with concern for a ureteropelvic obstruction. There is no obstructing renal calculi noted. She also notes that she had a renal scan performed in September of this year on the which showed no excretion of radiotracer in the left renal collecting system suggestive of a persistent high-grade ureteropelvic junction obstruction. Patient most recently saw Dr. Wallace on 10/27/2024. During this visit Dr. Wallace discussed surgical intervention with this patient and she tentatively has a pyeloplasty planned for December 03 of this year. The patient does note that she was recently diagnosed with a urinary tract infection was prescribed Macrobid. The patient was seen in the emergency department on 11/23/2024 but felt to be stable for discharge home. At this time she did have labs where CBC revealed white blood cell count, hemoglobin, hematocrit, and platelet count were all normal. Chemistry profile showed sodium and potassium as well as BUN and creatinine were normal. She also had a urinalysis at this time that showed 2+ leukocyte Estrace and pyuria with 21-50 white blood cells per high-power field and 2+ bacteria. A urine culture was sent at this time and currently shows pinpoint growth and is currently reincubating. She presented to the emergency department today due to ongoing left flank pain. With her pain she denies any fevers, shakes, or chills. She denies any nausea or vomiting. Since arrival to the hospital today the patient has had labs and imaging which independent reviewed. An obstruction series showed no evidence of pulmonary infiltrate on the chest x-ray. There are findings concerning for constipation on this study but there is no definite signs of bowel obstruction. No renal calculi are identified on this study. A renal ultrasound did show moderate to severe left-sided hydronephrosis with the absence of the left ureteral jet. Labs including CBC were white blood cell count was 4.4. Hemoglobin and hematocrit as well as platelet count were normal. Chemistry profile showed sodium and potassium as well as BUN and creatinine were normal. At the time my interview she was resting comfortably in bed and she was in no distress Allergies Allergy/AdvReac Type Severity Reaction Status Date / Time ketorolac [From Toradol] AdvReac Unknown Vomiting Verified 11/24/24 12:15 NSAIDS (Non-Steroidal AdvReac Unknown VOMITING/CONTRAINDICATED Verified 11/24/24 12:15 Anti-Inflamma WITH GASTRIC SLEEVE. Home Medications Medication Instructions Recorded Confirmed Type amitriptyline 10 mg tablet 30 mg PO HS 11/02/22 11/24/24 History bupropion HCl 100 mg tablet 150 mg PO UD 11/02/22 11/24/24 History cyanocobalamin (vitamin B-12) 1,000 mcg IM .[id number] 01/11/24 11/24/24 History 1,000 mcg/mL injection solution acetaminophen 500 mg tablet 500 mg PO UD PRN Pain 02/05/24 11/24/24 History ondansetron 4 mg disintegrating 4 mg PO Q8H PRN nausea and 09/16/24 11/24/24 Rx tablet vomiting #14 tabs nitrofurantoin 100 mg PO BID 7 days #14 caps 11/23/24 11/24/24 Rx monohydrate/macrocrystals 100 mg capsule (Macrobid) bupropion HCl 100 mg tablet 100 mg PO QAM 11/24/24 11/24/24 History oxycodone 5 mg tablet 10 mg PO Q4H PRN pain 11/24/24 11/24/24 History Patient History Medical History History of COVID-19 approx 2019. No hx hospitalization. Hydronephrosis, left UPJ obstruction, acquired Hx of pancreatitis (2014) per medical record - pt denies - states she had an ERCP after gastric sleeve due to post op complications. Hx of splenomegaly (2017) pt did not have her spleen removed, "it enlarged after giving and resolved on its own" Motion sickness severe History of kidney stones History of anemia History of cardiac murmur as a child Anxiety and depression IBS (irritable bowel syndrome) GERD (gastroesophageal reflux disease) under control at current per pt Migraine "occasionally" Surgical History History of ERCP (2014) History of hysterectomy [place] and LSO H/O mastopexy History of bilateral tubal ligation H/O cystoscopy stone removal History of tonsillectomy and adenoidectomy Nausea and vomiting after administration of anesthetic agent has used the scope patch in the past with relief. 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 Beliefs That Will Affect Care: None marital status: Current Living Situation: Spouse and Family Current Living Situation Comment: and 3 sons Feels Safe at Home: Yes Assistive Devices: Contacts and Glasses Review of Systems Review of Systems: All systems reviewed & are unremarkable except as noted in HPI & below Physical Exam Constitutional: WD/WN, vitals as above Eyes: no conjunctival abnormality ENMT: Ears: no hearing impairment and no external ear abnormality Mouth: no oropharynx abnormality Neck: trachea midline Respiratory: normal respiratory effort; no respiratory distress and no labored breathing Cardiovascular: Rate/Rhythm: regular rate and regular rhythm Gastrointestinal (Abdomen): Soft and nontender to palpation Musculoskeletal: No calf tenderness Skin: no rashes Neurologic: moves all extremities Psychiatric: A+Ox3, euthymic affect Genitourinary: CVA tenderness noted percussion on the left, none on the right Results & Data Vital Signs (Past 12 Hours) Vital Signs Temp Pulse Pulse Resp BP BP Pulse Ox 11/24/24 18:49 88 26 H 142/90 H 99 11/24/24 18:29 100 11/24/24 18:17 96 H 12 132/87 100 11/24/24 17:20 82 11/24/24 17:19 95 H 16 134/91 99 11/24/24 16:52 97 H 18 121/89 100 11/24/24 16:26 95 H 18 100 11/24/24 16:26 102 H 24 128/86 100 11/24/24 15:55 36.6 C 100 H 18 136/86 99 O2 Del Method 11/24/24 18:49 Room Air 11/24/24 18:29 Room Air 11/24/24 18:17 Room Air 11/24/24 17:20 11/24/24 17:19 Room Air 11/24/24 16:52 Room Air 11/24/24 16:26 Room Air 11/24/24 16:26 Room Air 11/24/24 15:55 PG Care Time/CCT Total # of Minutes Spent Total Time Spent with Patient: Total time spent is greater than 50% in coordination of care (as documented) at patient's floor/unit and/or counseling patient: Coding Level of Care Code 65139 IN/OBS CONSULT LVL 5,80M Diagnoses UPJ obstruction, acquired N13.5
[2024-11-24] MEDS ORDERED: PROMETHAZINE 12.5 MG/50.5 ML BAG IV PRN (20:38)
[2024-11-24] MEDS ORDERED: POLYETHYLENE (MIRALAX) 17 GM PACK PO PRN (20:38)
[2024-11-24] MEDS ORDERED: ACETAMINOPHEN 325 MG TAB PO PRN (20:38)
[2024-11-24] MEDS: MoRPHine SULFATE 4 MG/ML 1 ML CARP\\VIAL IV PRN (20:50)
[2024-11-24] MEDS: SODIUM CHLORIDE 0.9% 1,000 ML IV SCH (20:54)
[2024-11-24] MEDS: cefTRIAXone SODIUM 2,000 MG/50 ML BAG IV SCH (21:22)
[2024-11-24] MEDS: AMITRIPTYLINE HCL 10 MG TAB PO SCH (21:55)
[2024-11-24] MEDS: DOCUSATE SODIUM/SENNA 50/8.6MG TAB PO SCH (21:55)
--- NOTE | 2024-11-25 09:31 | Urology Progress Note ---
Date of Service November 25, 2024 Assessment & Plan (1) UPJ obstruction, acquired: Plan: Imaging reviewed and shows moderate left hydronephrosis. She is afebrile, hemodynamically stable. labs reviewed. Urine culture with pinpoint growth, reincubating Discussed further management of this with her and recommend continued pain control until her scheduled surgery. Do not recommend stent placement in the interim and she prefers not to have a stent She feels her pain is adequately controlled and wants to go home today. Continue oxycodone for pain as outpatient, zofran for nausea (already has these medications) Currently on macrobid, recommend continuing Okay to discharge home today from urology standpoint. Follow up for planned procedure. (2) Hydronephrosis, left: Admission and Anticipated Discharge Date Admission Date: November 24, 2024 Subjective 34 year old patient with chronic left hydronephrosis/UPJ obstruction, scheduled next with with Dr Wallace for pyeloplasty. She still has some pain but improved. Vomiting has improved. She would like to be discharged home today. Physical Exam Constitutional: well developed and well nourished; no acute distress Respiratory: normal respiratory effort; no respiratory distress and no labored breathing Cardiovascular: Extremities: no edema Gastrointestinal (Abdomen): Percussion/Palpation: + abdomen tender Psychiatric: A+Ox3, euthymic affect Genitourinary: + CVA tenderness Results & Data Vital Signs (Past 12 Hours) Vital Signs Temp Pulse Resp BP Pulse Ox O2 Del Method 11/25/24 07:18 36.9 C 90 17 104/71 100 Room Air PG Care Time/CCT Total # of Minutes Spent Total Time Spent with Patient: Total time spent is greater than 50% in coordination of care (as documented) at patient's floor/unit and/or counseling patient: Coding Level of Care Code 72073 SUB INP/OBS CARE 06/06MIN Diagnoses UPJ obstruction, acquired N13.5 Hydronephrosis, left N13.30
[2024-11-25 11:23] VITALS: BP 113/70; PULSE 93; RESP 18; TEMP 98.2; O2SAT 97
--- NOTE | 2024-11-25 11:43 | Discharge Summary ---
Date of Service November 25, 2024 Admission HPI Per Admitting Provider This is a 34 yr old F who has a significant PMH of Chronic L hydronephrosis, hx of migraine, BELLA, depression, WILLIAM, hx of borderline personality disorder who presents to ED 2/2, hx of gastrectomy who presents to ED 2/2 worsening flank pain. Patient has recently been following with outpatient [facility] urology, Dr. Wallace. She currently has a planned procedure scheduled for 12/03/2024. She has been experiencing significant left-sided flank pain with radiation to the anterior aspect of the left side of her abdomen. Pain has been debilitating. She has had significant nausea and vomiting and has been unable to tolerate liquid or solid food. She was last seen in outpatient clinic by Dr. Wallace on 10/27/2024. She underwent further investigation of her left flank pain which revealed decreased renal function of the left kidney on and MAG 3. Per Dr. Wallace's recent note it appears that the left sided UPJ obstruction is secondary to a crossing vessel to the lower pole of her kidney. She has poorly tolerated stents in the past. Plan is to undergo robotic assisted laparoscopic left pyeloplasty. She was seen and evaluated in ED last evening due to worsening pain and inability to manage at home. She ended up being discharged home. Due to inability to tolerate anything oral she returned back today. She reports she has not been urinating normally. She reports it just comes out in, "drops." She denies any burning, increased urg/freq or hematuria. She has chronic constipation at baseline. She has a urine culture pending from yesterday which is reincubating growing pinpoint colonies. She states that she was told to start an antibiotic on 11/26 prior to her procedure with Macrobid. Patient's mother is at bedside who also helps elicit history. Patient's external chart was reviewed as well. In ED patient remained hemodynamically stable. Renal ultrasound showed moderate to severe left-sided hydronephrosis with absence of a left ureteral jet. Her white blood cell count was within normal limits. Urology service was contacted and recommended admission to hospital and n.p.o. after midnight for possible procedure tomorrow. Admission Exam Per Admitting Provider Constitutional: WD/WN, appears in pain, vitals as above, NAD, sitting up in bed, pleasant, conversing easily Head: Normocephalic, Atraumatic Eyes: conjunctivae normal, anicteric sclerae ENMT: external ear and nose normal, oropharynx normal Neck: trachea midline, no thyromegaly normal visual inspection Respiratory: normal respiratory effort, lungs clear to auscultation, no wheeze, rales, rhonchi. Cardiovascular: RRR, no murmur, no edema Vessels: no JVD or carotid bruit Abdomen: normal bowel sounds, soft, nontender, no hepatosplenomegaly , + L CVA Tenderness Musculoskeletal: arom x 4 Skin: no rashes, warm and dry normal turgor Neurologic: PERRL, EOMI, accommodation nl, no face palsy, no dysarthria CN's II-XI intact bilaterally and moves all extremities Psychiatric: A+Ox3, euthymic affect Lymphatic: no cervical or axillary lymphadenopathy Principal Diagnosis UPJ obstruction, acquired Left flank pain Discharge Exam Constitutional: WD/WN, appears in pain, NAD, sitting up in bed, pleasant, conversing easily Head: Normocephalic, Atraumatic Eyes: conjunctivae normal, anicteric sclerae ENMT: external ear and nose normal, oropharynx normal Neck: trachea midline, no thyromegaly normal visual inspection Respiratory: normal respiratory effort, lungs clear to auscultation, no wheeze, rales, rhonchi. Cardiovascular: RRR, no murmur, no edema Vessels: no JVD or carotid bruit Abdomen: normal bowel sounds, soft, nontender, no hepatosplenomegaly , + L CVA Tenderness Musculoskeletal: arom x 4 Skin: no rashes, warm and dry normal turgor Neurologic: PERRL, EOMI, accommodation nl, no face palsy, no dysarthria CN's II-XI intact bilaterally and moves all extremities Psychiatric: A+Ox3, euthymic affect Lymphatic: no cervical or axillary lymphadenopathy Discharge Data Allergies Allergy/AdvReac Type Severity Reaction Status Date / Time ketorolac [From Toradol] AdvReac Unknown Vomiting Verified 11/24/24 12:15 NSAIDS (Non-Steroidal AdvReac Unknown VOMITING/CONTRAINDICATED Verified 11/24/24 12:15 Anti-Inflamma WITH GASTRIC SLEEVE. Consultations 11/24/24 18:30 ED Decision to Admit Stat 11/24/24 18:32 Consult Urology Routine Ordered Studies 11/24/24 16:37 US renal/blad retro comp Stat Hospital Course (1) UPJ obstruction, acquired: Plan Per prior attending with addendum: This is a 34 yr old F who has a significant PMH of Chronic L hydronephrosis, hx of migraine, BELLA, depression, WILLIAM, hx of borderline personality disorder who presents to ED 2/2, hx of gastrectomy who presents to ED 2/2 worsening flank pain. #UPJ Obstruction #L flank pain #nausea and vomiting admit to med/surg consult urology clear liquids, NPO after midnight plan for robotic assisted L pyeloplasty felt mod-severe L hydronephrosis 2/2 crossing vessel, outpt imaging revealed reduced L renal function pain control, antiemetics, will place on bowel regimen given chronic constipation NSS 80cc/hr Empiric IV ceftriaxone given pending urine and upcoming procedure, d/c when appropriate Chronic conditions include: Depression with anxiety, hx of Borderline personality d/o, migraines, BELLA, hx of gastrectomy: cont home meds DVT ppx: none for now, pt ambulatory, pending procedure FULL CODE PCP: Brianne Knott Dispo: admit to med/surg, possible procedure tomorrow Addendum 11/25/2024: Patient seen and examined at bedside as a follow-up of left flank pain in the setting of chronic UPJ obstruction. Initially there was plan for stent placement but due to upcoming scheduled surgery, now no plans for it. Patient reports pain fairly under control and does report she has pain medications at home. Urology evaluated the patient, recommends continuing Macrobid as prior. Urology feels patient is okay to discharge from their standpoint. Patient is hemodynamically stable and would like to go home. Patient is being discharged with following instructions at the point of discharge: Pt was seen and examined in collaboration with Dr. Graves please see addendum Follow-up with your primary care physician within a week time and likely you will need labs CBC/CMP/magnesium/phosphorus. You were evaluated by urology for your left flank pain in the setting of chronic UPJ obstruction. Urology recommends that you continue your Macrobid as prior, follow-up with your scheduled surgery. Continue to utilize your Zofran and oxycodone as prior. Follow-up with urology in 1 to 2 weeks time upon discharge. Take your medications as prescribed. Please make sure that you are able to get your medications today by calling your pharmacy before you leave the hospital so that your treatment continuity is not broken. Home Health Attestation I certify that this patient is under my care and that I, or a physicians social services assistant working with me, had a face to-face encounter that meets the home health [id number] encounter requirements with this patient. The encounter with the patient was in whole, or in part, for the following medical condition, which is the primary reason for home health care (list medical condition): I certify that, based on my findings, the following services are medically necessary home health services: My clinical findings support the need for the above services because: Further, I certify that my clinical findings support that this patient is homebound (i.e. absences from home require considerable and taxing effort and are for medical reasons or latter day services or infrequently or of short duration when for other reasons) because: Certification for Home Health Services: Based on the above findings, I certify that this patient is confined to the home and needs intermittent group home care, physical therapy and/or speech therapy or continues to need occupational therapy. The patient is under my care, and I have initiated the establishment of the plan of care. This patient will be followed by a physician who will periodically review the plan of care. Total Time Total Time Spent Total Time Spent (In Minutes): 40 Discharge Plan Discharge Items Patient Disposition: Home - Self-Care Reason For Visit: CHRONIC UPJ OBSTRUCTION Discharge Diagnosis: UPJ obstruction, acquired Left flank pain Condition on Discharge: Fair Activity: Resume your previous activity Non-emergency contact: Primary Care Provider Call non-emergency contact if: you have any medication questions and your symptoms worsen Follow-up/Referrals: Jose Ramon Heller MD [Primary Care Provider] - Diet: Regular Addtl Attending Provider Instructions: Follow-up with your primary care physician within a week time and likely you will need labs CBC/CMP/magnesium/phosphorus. You were evaluated by urology for your left flank pain in the setting of chronic UPJ obstruction. Urology recommends that you continue your Macrobid as prior, follow-up with your scheduled surgery. Continue to utilize your Zofran and oxycodone as prior. Follow-up with urology in 1 to 2 weeks time upon discharge. Take your medications as prescribed. Please make sure that you are able to get your medications today by calling your pharmacy before you leave the hospital so that your treatment continuity is not broken. Pending Studies at Discharge: No Stand-Alone Forms: My [facility], Smoking Cessation Medications and DC Order Prescriptions: Continued nitrofurantoin monohyd/m-cryst [Macrobid] 100 mg capsule 100 mg PO BID 7 Days Qty: 14 0RF Patient Comments: started 11/23/24 Rx Instructions: must administer with a meal/food take for 7 days ordered 11/23/24 bupropion HCl 100 mg tablet 150 mg PO UD Patient Comments: 100 mg morning, 150 mg at noon, 150 mg at bedtime Rx Instructions: 150 MG @ NOON & HS. amitriptyline 10 mg tablet 30 mg PO HS cyanocobalamin (vitamin B-12) 1,000 mcg/mL Solution 1,000 mcg IM .[id number] ondansetron 4 mg tablet,disintegrating 4 mg PO Q8H PRN (Reason: nausea and vomiting) Qty: 14 0RF acetaminophen 500 mg Tablet 500 mg PO UD PRN (Reason: Pain) oxycodone 5 mg tablet 10 mg PO Q4H PRN (Reason: pain) bupropion HCl 100 mg tablet 100 mg PO QAM Discharge Orders: Discharge Order (Routine); Ordered 11/25/24 Ordered By: Berta Morales Admission Data Admit Date/Time: 11/24/24 18:32 Attending Provider: Berta Morales Admit Provider: Sarah Graves Primary Care Provider: Jose Ramon Heller Other Providers: Ron Phillips; Sarah Graves
== END 2024-11-25 12:38 | disposition home or self-care (01) ==
LOC: ED 15:54 → 3N 18:32 → SUATTDRO 18:32 → INTOOBSV 18:32 → 3N 21:03